=== PATIENT | female | born 1980 | race Caucasian/White ===

== ENCOUNTER 2019-11-29 14:59 | Outpatient (REF) | payer OTHER, SELFPAY ==
[2019-11-29 15:53] LABS: Hematocrit 36.8 % (37-47); Hemoglobin 11.9 g/dl (12.0-16.0); Mean Corpuscular HGB Conc 32.3 g/dl (31.0-35.0); Mean Corpuscular Hemoglobin 27.2 pg (27.0-33.0); Mean Corpuscular Volume 84.2 fL (80-98); Mean Platelet Volume 10.4 fL (9.4-12.3); Platelet Count 273 X10*3/uL (160-400); Red Blood Count 4.37 X10*6/uL (4.20-5.50); Red Cell Distribution Width 13.2 % (11.0-16.0); White Blood Count 8.4 X10*3/uL (4.8-10.8)
[2019-11-29 16:14] LABS: Anion Gap 12 (12-20); Blood Urea Nitrogen 16 mg/dL (9-16); Calcium 9.3 mg/dL (8.4-10.2); Carbon Dioxide 26 mmol/L (22-29); Chloride 104 mmol/L (96-108); Cholesterol 179 mg/dL; Estimated Glomerular Filt Rate > 60; Glucose Random 89 mg/dL (60-115); HDL Cholesterol 57 mg/dL; LDL Cholesterol Calculated 88 mg/dl; Potassium 4.6 mmol/l (3.3-5.1); Sodium 137 mmol/L (135-145); Triglycerides 171 mg/dL
[2019-11-29 19:17] LABS: Alanine Aminotransferase 11 U/L (0-31); Albumin Level 4.3 g/dL (3.5-5.0); Alkaline Phosphatase 57 U/L (39-117); Aspartate Amino Transferase 15 U/L (5-31); Bilirubin Direct < 0.2 mg/dL (0.0-0.5); Bilirubin Total 0.3 mg/dL (0.0-1.0); Total Protein 7.3 g/dL (6.5-8.0)
== END 2019-11-29 15:00 | disposition home or self-care (01) ==
LOC: HO.LAB 14:59
PROVIDERS: PCP Internal Medicine; Visit Provider Internal Medicine
DX: Z00.00 Encounter for general adult medical examination without abnormal findings (principal); Z20.828 Contact with and (suspected) exposure to other viral communicable diseases
CPT/HCPCS: 36415; 80048; 80061; 80076; 84443; 85027; 87635

== ENCOUNTER 2021-01-07 16:10 | Outpatient (REF) | payer OTHER, SELFPAY ==
[2021-01-07 16:29] LABS: MANUAL DIFF FLAG NO
[2021-01-07 18:14] LABS: Basophils Percent Auto 0.5 % (0-2); Eosinophils Absolute Auto 0.1 X10*3/uL (0.0-0.4); Eosinophils Percent Auto 1.5 % (0-4); Hematocrit 37.4 % (37.0-47.0); Hemoglobin 12.1 g/dl (12.0-16.0); Imm Gran Abs Auto 0.01 X10*3/uL (0.00-0.03); Imm Gran Pct Auto 0.1 % (0.0-0.4); Lymphocytes Absolute Auto 3.2 X10*3/uL (1.2-4.9); Lymphocytes Percent Auto 40.6 % (20-40); Mean Corpuscular HGB Conc 32.4 g/dl (31.0-35.0); Mean Corpuscular Volume 83.5 fL (80.0-98.0); Mean Platelet Volume 11.3 fL (9.4-12.3); Monocytes Absolute Auto 0.6 X10*3/uL (0.1-1.2); Monocytes Percent Auto 7.9 % (2-11); Neutrophils Absolute Auto 3.8 x10*3/uL (2.0-8.3); Neutrophils Percent Auto 49.4 % (45-73); Platelet Count 268 X10*3/uL (160-400); Red Blood Count 4.48 X10*6/uL (4.20-5.50); Red Cell Distribution Width 13.1 % (11.0-16.0); White Blood Count 7.8 X10*3/uL (4.8-10.8)
[2021-01-07 18:20] LABS: Appearance Urine CLEAR; Color Urine YELLOW; Glucose Urine UA NEG (NEG); Leukocyte Esterase Urine NEG (NEG); Nitrite Urine NEG (NEG); Urine Blood NEG (NEG); Urine Ketones NEG (NEG); Urine Protein NEG (NEG-TRACE)
== END 2021-01-07 16:11 | disposition home or self-care (01) ==
LOC: HO.LAB 16:10
PROVIDERS: PCP Internal Medicine; Visit Provider Family Medicine
DX: Z00.00 Encounter for general adult medical examination without abnormal findings (principal); R10.9 Unspecified abdominal pain
CPT/HCPCS: 36415; 81003; 85025

== ENCOUNTER 2021-01-08 06:40 | Outpatient (REF) | payer OTHER, SELFPAY ==
[2021-01-08 07:54] LABS: Alanine Aminotransferase 14 U/L (0-31); Albumin Level 4.3 g/dL (3.5-5.0); Alkaline Phosphatase 59 U/L (39-117); Anion Gap 12 (12-20); Aspartate Amino Transferase 15 U/L (5-31); Bilirubin Total 0.5 mg/dL (0.0-1.0); Blood Urea Nitrogen 13 mg/dL (9-16); Calcium 9.5 mg/dL (8.4-10.2); Carbon Dioxide 27 mmol/L (22-29); Chloride 107 mmol/L (96-108); Estimated Glomerular Filt Rate > 60; Glucose Fasting 89 mg/dL (60-99); Lipase 23 U/L (8-78); Potassium 4.6 mmol/L (3.3-5.1); Sodium 141 mmol/L (135-145)
== END 2021-01-08 06:41 | disposition home or self-care (01) ==
LOC: HO.LAB 06:40
PROVIDERS: PCP Internal Medicine; Visit Provider Family Medicine
DX: Z00.00 Encounter for general adult medical examination without abnormal findings (principal); R10.9 Unspecified abdominal pain
CPT/HCPCS: 36415; 80053; 83690

== ENCOUNTER 2021-01-17 10:33 | Outpatient (REF) | payer OTHER, SELFPAY ==
--- NOTE | ~2021-01-17 | US_ITS ---
EXAMINATION: US ABDOMEN COMPLETE CLINICAL INFORMATION: Unspecified abdominal pain. COMPARISON: CT abdomen and pelvis 01/13/2012. TECHNIQUE: Real-time imaging of the abdominal viscera. FINDINGS: PANCREAS: Not well visualized due to bowel gas. ABDOMINAL AORTA: The proximal, mid, and distal segments are normal in caliber. INFERIOR VENA CAVA: Visualized portions are normal. LIVER: The liver is normal in size. The liver contour is normal. No focal hepatic lesion. There is no intrahepatic biliary duct dilatation seen. GALLBLADDER: Normal. The gallbladder is physiologically distended without evidence of stones, sludge, polyps, wall thickening or pericholecystic fluid. COMMON BILE DUCT: Normal in caliber measuring 0.3 cm in diameter. RIGHT KIDNEY: Normal. No hydronephrosis. No renal calculi or focal parenchymal lesions. The kidney measures 11.0 cm in maximum dimension. LEFT KIDNEY: Normal. No hydronephrosis. No renal calculi or focal parenchymal lesions. The kidney measures 9.9 cm in maximum dimension. SPLEEN: The spleen measures 7.4 cm in maximum dimension. There are multiple splenules. Appearance is questionable for polysplenia. This is similar to previous CT scan from 2012. FREE FLUID: None. US/US abdomen complete IMPRESSION: Multiple splenules. Question polysplenia. Nonvisualization of the pancreas. Otherwise unremarkable exam.
== END 2021-01-17 10:34 | disposition home or self-care (01) ==
LOC: HO.HMGCX 10:33
PROVIDERS: PCP Internal Medicine; Visit Provider Family Medicine
DX: R10.11 Right upper quadrant pain (principal)
CPT/HCPCS: 76700

== ENCOUNTER → 2021-02-05 07:57 | Outpatient (REF) | payer OTHER, SELFPAY ==
--- NOTE | ~2021-02-05 | NM_ITS ---
EXAMINATION: NM BILIARY TRACT WITH ORAL FATTY MEAL CLINICAL INFORMATION: Right upper quadrant pain. COMPARISON: No previous biliary scan is available for comparison. Abdominal ultrasound dated 01/17/[address] scan of the abdomen and pelvis, dated 01/13/2012, are available for comparison. TECHNIQUE: Serial gamma scintillation camera images were obtained over the abdomen for a total observation period of 134 minutes following the intravenous administration of 4.6 mCi Tc-99m Mebrofenin. FINDINGS: There is good concentration of activity in the liver by 5 minutes post injection. Biliary activity is visualized by 15 minutes post injection and the gallbladder is well visualized by 25 minutes post injection. Small bowel activity is well visualized by 55 minutes post injection. At 60 minutes post Mebrofenin injection, 8 ounces of Ensure-plus Brand was administered orally and an additional 60 minutes of images were obtained. There is only minimal gallbladder emptying following ingestion of the fatty meal. At the end of the study there is almost complete clearance of activity from the liver, but there is abnormal retention of activity in the gallbladder. Diffuse small bowel activity is also well visualized at this time. The calculated gallbladder ejection fraction is 25% (normal gallbladder ejection fraction using Ensure supplement orally is greater than 33%). NM/NM hepatobiliary wo pharm IMPRESSION: 1. Visualization of the gallbladder is evidence of a patent cystic duct and strong evidence against the diagnosis of acute cholecystitis. The common bile duct is patent. Liver function appears normal. 2. Poor gallbladder emptying and a low gallbladder ejection fraction are evidence of impaired gallbladder contractility and most likely due to chronic cholecystitis.
[2021-02-05 09:37] LABS: HCG Quantitative < 2 mIU/mL
== END ==
LOC: HO.NUCMED 07:57
PROVIDERS: Visit Provider Family Medicine
DX: R10.11 Right upper quadrant pain (principal)
CPT/HCPCS: 36415; 78226; 84702; A9537

== ENCOUNTER 2021-02-26 13:13 | Outpatient (REF) | payer OTHER, SELFPAY ==
--- NOTE | ~2021-02-26 | MM_ITS ---
EXAMINATION: MM DIAGNOSTIC DIGITAL BREAST TOMOSYNTHESIS, BILATERAL US DIAGNOSTIC ULTRASOUND BREAST, BILATERAL CLINICAL INFORMATION: Bilateral mastodynia, recently increased. Currently on course of empiric antibiotics. No erythema. Family history breast cancer, maternal grandmother. Age 40. No prior breast imaging. The lifetime risk of breast cancer based on the Tyrer-Cuzick Model is 20.2%. COMPARISON: None (current study represents initial baseline diagnostic exam). TECHNIQUE: Digital breast tomosynthesis is performed in both the craniocaudal and mediolateral oblique views along with computer-aided detection (CAD). Synthesized 2D images are generated from the tomosynthesis. Ultrasound bilateral breasts is performed using grayscale imaging and color Doppler without and with harmonics. Imaging is targeted to the areas of symptoms, bilateral outer breasts. FINDINGS: The breasts are heterogeneously dense, which may obscure small masses (ACR BI-RADS breast composition Category c). Breast tissue composition borders on average fibroglandular. There is no significant mass or architectural abnormality or abnormal calcifications. There is no skin thickening or coarsening of the Homero's ligaments. No adenopathy. Ultrasound demonstrates no cystic or solid mass or focal duct ectasia. No architectural abnormality. No skin thickening or edema tracking in soft tissue planes. Preliminary results are discussed with the patient at time of visit. MM/MM tomosynthesis diagnostic BI IMPRESSION: No mammographic evidence of malignancy or inflammatory changes. Unremarkable bilateral breast ultrasound. ASSESSMENT: BI-RADS 1: Negative RECOMMENDATION: 1. Patient's bilateral breast symptoms should be managed based on the clinical impression. 2. The lifetime risk of breast cancer based on the Tyrer-Cuzick Model is 20.2%. Additional annual adjunct screening with breast MRI may be of benefit in women with a risk score of 20% or greater. 3. Otherwise, routine annual screening mammography beginning age 40, or earlier as clinical risk factors warrant.. This patient's information was entered into a reminder system with a target due date for their next mammogram.
== END 2021-02-26 13:14 | disposition home or self-care (01) ==
LOC: HO.MAMMO 13:13
PROVIDERS: Visit Provider Hospitalist
DX: N64.4 Mastodynia (principal)
CPT/HCPCS: 76642; 77062; 77066

== ENCOUNTER 2021-02-26 15:39 | Outpatient (REF) | payer OTHER, SELFPAY ==
[2021-02-26 16:01] LABS: Hematocrit 37.5 % (37.0-47.0); Hemoglobin 12.3 g/dl (12.0-16.0); Mean Corpuscular HGB Conc 32.8 g/dl (31.0-35.0); Mean Corpuscular Hemoglobin 27.3 pg (27.0-33.0); Mean Corpuscular Volume 83.1 fL (80.0-98.0); Mean Platelet Volume 10.3 fL (9.4-12.3); Platelet Count 273 X10*3/uL (160-400); Red Blood Count 4.51 X10*6/uL (4.20-5.50); Red Cell Distribution Width 13.1 % (11.0-16.0); White Blood Count 8.3 X10*3/uL (4.8-10.8)
== END 2021-02-26 15:40 | disposition home or self-care (01) ==
LOC: HO.LAB 15:39
PROVIDERS: PCP Family Medicine; Visit Provider Hospitalist
DX: N61.23 Granulomatous mastitis, bilateral breast (principal); N64.4 Mastodynia
CPT/HCPCS: 36415; 85027

== ENCOUNTER 2022-03-11 11:45 | Outpatient (REF) | payer OTHER, SELFPAY ==
[2022-03-11 14:36] LABS: Influenza A PCR NEGATIVE (Negative); Influenza B PCR NEGATIVE (Negative); Resp Syncy Virus RNA Qual PCR NEGATIVE (Negative); SARS COV2 PCR INHOUSE NEGATIVE (Negative)
== END 2022-03-11 11:46 | disposition home or self-care (01) ==
LOC: HO.LAB 11:45
PROVIDERS: Visit Provider Nurse Practitioner Family
DX: J06.9 Acute upper respiratory infection, unspecified (principal); Z20.822 Contact with and (suspected) exposure to COVID-19
CPT/HCPCS: 0241U

== ENCOUNTER 2022-06-28 10:13 | Outpatient (REF) | payer OTHER, SELFPAY | END 2022-06-28 10:14 | disposition home or self-care (01) | LOC: HO.LAB 10:13 | PROVIDERS: Visit Provider Physician Assistant Medical | DX: Z13.89 Encounter for screening for other disorder (principal) ==

== ENCOUNTER 2022-06-28 11:11 | Outpatient (REF) | payer OTHER, SELFPAY ==
[2022-06-28 12:11] LABS: Influenza A PCR NEGATIVE (Negative); Influenza B PCR NEGATIVE (Negative); Resp Syncy Virus RNA Qual PCR NEGATIVE (Negative); SARS COV2 PCR INHOUSE NEGATIVE (Negative)
== END 2022-06-28 11:12 | disposition home or self-care (01) ==
LOC: HO.LNP 11:11
PROVIDERS: Visit Provider Physician Assistant Medical
DX: R05.9 Cough, unspecified (principal); Z20.822 Contact with and (suspected) exposure to COVID-19
CPT/HCPCS: 0241U

== ENCOUNTER 2022-09-04 13:05 | Outpatient (AMB) | payer OTHER, SELFPAY ==
--- NOTE | 2022-09-04 13:07 | MHC.PC.OV ---
Vital Signs 09/04/22 13:08 Height 5 ft 4 in Weight 144 lb 4 oz BMI 24.8 BP 126/74 Blood Pressure Location Rt brachial Position Sitting Pulse 78 Pulse Source Pulse Oximeter Pulse Oximetry (%) 98 Intake Visit Reasons: follow up MH disorder Intake Note: pt is here for f/u MH disorder Occupational Medicine Specialist Required: No Accompanied by: Self / Same As Patient Allergies bee venom protein (honey bee) Allergy (Intermediate, Verified 09/04/22 13:07) Swelling promethazine [Phenergan] Allergy (Unknown, Verified 09/04/22 13:07) Hives Sulfa (Sulfonamide Antibiotics) [SULFA (SULFONAMIDE ANTIBIOTICS)] Allergy (Unknown, Verified 09/04/22 13:07) HIVES lactose Adverse Reaction (Mild, Verified 09/04/22 13:07) Diarrhea Tobacco use date assessed: 07/31/22 Dental Screening Dental Screen Date: 09/04/22 Did you have a dental visit in the last 12 months?: Yes Did you have a dental problem in the last 6 months where you did not have access to dental care?: No Was dental information given to patient?: Patient has dentist HPI follow up MH disorder HPI Details Pt presents to f/u depression/anxiety. She has been scoring positive on the questionnaires. She denies any SI/self harm. She is on bupropion 75mg b.i.d. and setraline 200mg. She reports difficulty concentrating. She notes she had a prior diagnosis of ADHD. She notes bupropion has been working well but questions whether or not there is something better for her. She states she feels more anxious than depressed. She sleeps okay. She describes her anxiety as a hyperstimulated anxiety. [facility] Medical History Screening examination for infectious disease Surgical History History of hernia surgery History of tonsillectomy and adenoidectomy History of umbilical hernia repair Family History Mother Hypothyroid High cholesterol Father Prostate cancer Thyroid disease High cholesterol Other Lipoma Social History Housing: House Alcohol intake: current Alcohol intake frequency: holidays/special occasions only Patient Tobacco Use Status: Never used Tobacco e-Cigarette/Vaping Use: Never Used Second Hand Smoke Exposure: Yes service: No Current occupational status: employed Current occupational exposures/hazards: No Cognitive needs: No Hearing needs: No Vision needs: No Questionnaire PHQ-9 Over the last 2 weeks, how often have you been bothered by any of the following problems? 1. Little interest or pleasure in doing things: several days 2. Feeling down, depressed, or hopeless: several days 3. Trouble falling or staying asleep, or sleeping too much: not at all 4. Feeling tired or having little energy: several days 5. Poor appetite or overeating: not at all 6. Feeling bad about yourself - or that you are a failure or have let yourself or your family down: more than half the days 7. Trouble concentrating on things, such as reading the newspaper or watching television: several days 8. Moving or speaking so slowly that other people could have noticed. Or the opposite - being so fidgety or restless that you have been moving around a lot more than usual: several days 9. Thoughts that you would be better off or of hurting yourself in some way: several days Total score: 8 Depression Screening Interpretation: Positive 04600 - PHQ-9 Billing: Yes Source: Developed by Drs. Sanchez Nunez, Deirdre Mock, Helio Carlos and colleagues, with an educational alba from [employer]. Thrive Questionnaire Date Thrive assessed: 09/04/22 I am a: Patient What is your living situation today?: I have a steady place to live Within the past 12 months, did the food you bought not last and you didn't have the money to get more?: Never true Within the past 12 months, did you worry whether your food would run out before you got money to buy more?: Never true Do you have trouble paying for medicines?: No Do you have trouble getting transportation to medical appointments?: No Do you have trouble paying your heating and electricity bill?: No Do you have trouble taking care of your child, family member or friend?: No Do you have trouble with day-to-day activities such as bathing, preparing meals, shopping, managing finances, etc.?: No Are you currently unemployed and looking for a job?: No Are you interested in more education?: No Please select the resources that you would like help with: None Currently or been in a relationship where the following occur: no concerns reported AIME-7 AMB Questionnaire AIME-7 Date AIME - 7 assessed: 09/04/22 Feeling nervous, anxious, or on edge: 2 = More than half the days Not being able to stop or control worryin = More than half the days Worrying too much about different things: 2 = More than half the days Trouble relaxin = More than half the days Being so restless that it is hard to sit still: 1 = Several days Becoming easily annoyed or irritable: 2 = More than half the days Feeling afraid as if something awful might happen: 1 = Several days Total AIME-7 score (0-4 normal; 5-9 mild; 10-14 moderate; 15-21 severe): 12 Source: Developed by Drs. Sanchez Nunez, Deirdre Mock, Helio Carlos and colleagues, with an educational alba from [employer]. AIME-7 Assessment Billing AIME-7 Assessment Tool: AIME-7 Assessment 96742 Review of Systems Psych Reports anxiety and Reports depression Physical exam (Primary Care) Vital Signs: Last Vital Signs Pulse 78 09/04/22 13:08 BP 126/74 09/04/22 13:08 Pulse Ox 98 09/04/22 13:08 BMI result Body Mass Index 24.8 Tobacco/Smoking Status: Tobacco use Status Tobacco use date assessed 07/31/22 09/04/22 13:17 Patient Tobacco Use Status Never used Tobacco 09/04/22 13:17 e-Cigarette/Vaping Use Never Used 09/04/22 13:17 PHQ-9: PHQ-9 Score PHQ-9: Total score 8 09/04/22 13:17 Depression Screening Interpretation: Positive Thrive Assessment: Date of Thrive Assessment Date Thrive assessed 09/04/22 09/04/22 13:17 Currently or been in a relationship where the following occur: no concerns reported Assessment and Plan Assessment & Plan (1) Depression with anxiety: Code(s): F41.8 - Other specified anxiety disorders Plan: Ongoing depression and anxiety. Still has elevated scoring in PHQ-9 and aime 7 Taking sertraline and bupropion as prescribed and bupropion was increased at a recent visit. Still having some anxiety in the evenings. Stable on a first-line medication and adjunct medication; will give her a 2nd line medication. Trial lorazepam as needed Risks/benefits were discussed (2) Difficulty concentrating: Code(s): R41.840 - Attention and concentration deficit Plan: She also has difficulty concentrating during the day and notes that she has had a prior diagnosis of ADHD. I do not currently have records establishing this diagnosis but she says she will be able to get those to me. We can follow-up on this at her next visit Medications: New lorazepam MassPat verified. Partial refill upon request. 0.5 mg PO DAILY PRN 12 tabs 0RF anxiety 30 days Changed From bupropion HCl 75 mg PO BID 30 days 60 tabs 0RF F32.A - Depression, unspecified, F33.2 - Major depressive disorder, recurrent severe without psychotic features To bupropion HCl 75 mg PO BID 90 days 180 tabs 3RF F32.A - Depression, unspecified, F33.2 - Major depressive disorder, recurrent severe without psychotic features From sertraline 200 mg (2 x 100 mg) PO BEDTIME 180 tabs 3RF To sertraline 200 mg (2 x 100 mg) PO BEDTIME 90 days 180 tabs 3RF Coding Level of Care Code Est Pt Level 3 (00401) Diagnoses Depression with anxiety F41.8 Difficulty concentrating R41.840 Additional Codes AIME-7 Assessment Billing - AIME-7 Assessment Tool: AIME-7 Assessment 86685 ([id number])
[2022-09-04 13:08] VITALS: BP 126/74; PULSE 78; O2SAT 98; BMI 24.8
== END 2022-09-04 13:53 | disposition home or self-care (01) ==
PROVIDERS: PCP Family Medicine; Visit Provider Family Medicine
DX: F41.8 Other specified anxiety disorders (principal); R41.840 Attention and concentration deficit
CPT/HCPCS: 96127; 99213

== ENCOUNTER 2022-10-06 15:35 | Outpatient (AMB) | payer OTHER, SELFPAY ==
[2022-10-06 15:37] VITALS: BP 122/70; PULSE 84; O2SAT 98; BMI 24.6
--- NOTE | 2022-10-06 15:37 | MHC.PC.OV ---
Vital Signs 10/06/22 15:37 Height 5 ft 4 in Weight 143 lb 4 oz BMI 24.6 BP 122/70 Blood Pressure Location Lt brachial Position Sitting Pulse 84 Pulse Source Pulse Oximeter Pulse Oximetry (%) 98 Oxygen Delivery Method Room Air Intake Visit Reasons: f/u depression/anxiety, difficulty concentrating Intake Note: Patient is here to follow up on anxiety and depression. Patient states she has difficuly concentrating. Allergies bee venom protein (honey bee) Allergy (Intermediate, Verified 10/06/22 15:41) Swelling promethazine [Phenergan] Allergy (Unknown, Verified 10/06/22 15:41) Hives Sulfa (Sulfonamide Antibiotics) [SULFA (SULFONAMIDE ANTIBIOTICS)] Allergy (Unknown, Verified 10/06/22 15:41) HIVES lactose Adverse Reaction (Mild, Verified 10/06/22 15:41) Diarrhea Tobacco use date assessed: 10/06/22 Dental Screening Dental Screen Date: 10/06/22 Did you have a dental visit in the last 12 months?: Yes Did you have a dental problem in the last 6 months where you did not have access to dental care?: No Was dental information given to patient?: Patient has dentist HPI f/u depression/anxiety, difficulty concentrating HPI Details 42 y/o female presents to f/u depression/anxiety and difficulty concentrating. Had been to the [facility] center and confirmed diagnosis of ADHD - they recommend medications to help with depression/anxiety and difficulty concentrating. She reports she would like to switch to lorazepam and hydroxyzine. [facility] Medical History Screening examination for infectious disease Surgical History History of hernia surgery History of tonsillectomy and adenoidectomy History of umbilical hernia repair Family History Mother Hypothyroid High cholesterol Father Prostate cancer Thyroid disease High cholesterol Other Lipoma Social History Housing: House Alcohol intake: current Alcohol intake frequency: holidays/special occasions only Patient Tobacco Use Status: Never used Tobacco e-Cigarette/Vaping Use: Never Used Second Hand Smoke Exposure: Yes service: No Current occupational status: employed Current occupational exposures/hazards: No Cognitive needs: No Hearing needs: No Vision needs: No Questionnaire PHQ-9 Over the last 2 weeks, how often have you been bothered by any of the following problems? 1. Little interest or pleasure in doing things: several days 2. Feeling down, depressed, or hopeless: several days 3. Trouble falling or staying asleep, or sleeping too much: not at all 4. Feeling tired or having little energy: several days 5. Poor appetite or overeating: not at all 6. Feeling bad about yourself - or that you are a failure or have let yourself or your family down: more than half the days 7. Trouble concentrating on things, such as reading the newspaper or watching television: several days 8. Moving or speaking so slowly that other people could have noticed. Or the opposite - being so fidgety or restless that you have been moving around a lot more than usual: not at all 9. Thoughts that you would be better off or of hurting yourself in some way: several days Total score: 7 Depression Screening Interpretation: Positive 06843 - PHQ-9 Billing: Yes Source: Developed by Drs. Sanchez Nunez, Deirdre Mock, Helio Carlos and colleagues, with an educational alba from [employer]. Thrive Questionnaire Date Thrive assessed: 09/04/22 AIME-7 AMB Questionnaire AIME-7 Date AIME - 7 assessed: 09/04/22 Feeling nervous, anxious, or on edge: 1 = Several days Not being able to stop or control worryin = Several days Worrying too much about different things: 2 = More than half the days Trouble relaxin = More than half the days Being so restless that it is hard to sit still: 2 = More than half the days Becoming easily annoyed or irritable: 1 = Several days Feeling afraid as if something awful might happen: 1 = Several days Total AIME-7 score (0-4 normal; 5-9 mild; 10-14 moderate; 15-21 severe): 10 Source: Developed by Drs. Sanchez Nunez, Helio Treviño and colleagues, with an educational alba from [employer]. AIME-7 Assessment Billing AIME-7 Assessment Tool: AIME-7 Assessment 44422 Review of Systems Const Denies chills, Denies fatigue, Denies fever(s), Denies headache(s) and Denies weakness ENT Denies dizziness and Denies headache(s) Card Denies chest pain, Denies lightheadedness, Denies dyspnea and Denies other (Palpitations) Resp Denies cough, Denies dyspnea, Denies wheezing and Denies other ( shortness of breath) Musc Denies numbness and Denies tingling Neuro Denies dizziness, Denies headache(s), Denies numbness, Denies tingling, Denies paresthesias and Denies weakness Psych Reports anxiety and Reports depression Endo Denies fatigue Aller/Immun Denies wheezing Physical exam (Primary Care) Vital Signs: Last Vital Signs Pulse 84 10/06/22 15:37 BP 122/70 10/06/22 15:37 Pulse Ox 98 10/06/22 15:37 Oxygen Delivery Method Room Air 10/06/22 15:37 BMI result Body Mass Index 24.6 Tobacco/Smoking Status: Tobacco use Status Tobacco use date assessed 10/06/22 10/06/22 15:50 Patient Tobacco Use Status Never used Tobacco 10/06/22 15:50 e-Cigarette/Vaping Use Never Used 10/06/22 15:50 PHQ-9: PHQ-9 Score PHQ-9: Total score 7 10/06/22 15:55 Depression Screening Interpretation: Positive Thrive Assessment: Date of Thrive Assessment Date Thrive assessed 09/04/22 10/06/22 15:50 Const General: no acute distress and well developed Nutritional Appearance: well nourished Orientation/consciousness: patient oriented x3 HENMT Head: Yes normocephalic and Yes atraumatic Eyes General: appearance normal, both eyes and all related structures Pupils: Equal, round and reactive pupils present EOM: EOMs intact bilaterally Resp Effort & Inspection: normal respiratory effort Auscultation: clear to auscultation bilaterally Cardio Rate: regular rate Rhythm: regular rhythm Heart sounds: S1 normal heart sound present, S2 normal heart sound present, no gallops, no murmurs and no rubs Neuro General: patient oriented x3 and gait normal Cranial nerves: Yes Equal, round and reactive pupils present Psych Affect: normal affect Assessment and Plan Assessment & Plan (1) Depression with anxiety: Code(s): F41.8 - Other specified anxiety disorders Plan: Fairly well controlled on bupropion and sertraline She would like to switch from lorazepam to hydroxyzine - change made Continue bupropion and sertraline as prescribed (2) ADHD: Code(s): F90.9 - Attention-deficit hyperactivity disorder, unspecified type Plan: Neuropsychiatry confirms diagnosis of ADHD-inattentive subtype and suggest that medication may be helpful Trial Adderall XR 10 mg q.a.m. risks/benefits discussed with patient. Medications: New dextroamphetamine-amphetamine 10 mg ER (Adderall XR) Partial Fill upon patient request. 10 mg PO QAM 30 caps 0RF 30 days F90.9 - Attention-deficit hyperactivity disorder, unspecified type hydroxyzine HCl 50 mg PO BID PRN 15 tabs 0RF anxiety 30 days Discontinued lorazepam MassPat verified. Partial refill upon request. Discontinued Reason: Doctor's Order 0.5 mg PO DAILY 30 days PRN 12 tabs 0RF anxiety Coding Level of Care Code Est Pt Level 3 (55261) Diagnoses Depression with anxiety F41.8 ADHD F90.9 Additional Codes AIME-7 Assessment Billing - AIME-7 Assessment Tool: AIME-7 Assessment 22554 ([id number])
== END 2022-10-06 16:25 | disposition home or self-care (01) ==
PROVIDERS: PCP Family Medicine; Visit Provider Family Medicine
DX: F41.8 Other specified anxiety disorders (principal); F90.9 Attention-deficit hyperactivity disorder, unspecified type
CPT/HCPCS: 96127; 99213

== ENCOUNTER 2022-11-14 16:24 | Outpatient (AMB) | payer OTHER, SELFPAY ==
--- NOTE | 2022-11-14 16:30 | MHC.PC.OV ---
Vital Signs 11/14/22 16:32 Height 5 ft 4 in Weight 143 lb 8 oz BMI 24.6 BP 118/64 Blood Pressure Location Rt brachial Position Sitting Respiration 13 Pulse 86 Pulse Source Pulse Oximeter Temp 97.5 F Temp Source Temporal Artery Scan Pulse Oximetry (%) 99 Oxygen Delivery Method Room Air Intake Visit Reasons: f/u depression/anxiety, difficulty concentrating Intake Note: Patient states that shes been having issues with insurance for her prescriptions. 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 Accompanied by: Self / Same As Patient Allergies bee venom protein (honey bee) Allergy (Intermediate, Verified 11/14/22 16:43) Swelling promethazine [Phenergan] Allergy (Unknown, Verified 11/14/22 16:43) Hives Sulfa (Sulfonamide Antibiotics) [SULFA (SULFONAMIDE ANTIBIOTICS)] Allergy (Unknown, Verified 11/14/22 16:43) HIVES lactose Adverse Reaction (Mild, Verified 11/14/22 16:43) Diarrhea Tobacco use date assessed: 10/06/22 Dental Screening Dental Screen Date: 11/14/22 Did you have a dental visit in the last 12 months?: Yes Did you have a dental problem in the last 6 months where you did not have access to dental care?: No Was dental information given to patient?: Patient has dentist HPI f/u depression/anxiety, difficulty concentrating HPI Details Patient?presents?to?discuss?anxiety?and?ADHD Had?continued?her?sertraline?and?bupropion?without?changes.??Had?switch?lorazepam to?hydroxyzine?at?her?request?and?she?seems?to?feel?that?the?hydroxyzine?is?working?better. Started?Adderall?last?month?and?she?says?that?it?has?been?helping?but?fluctuated?somewhat?initially.??She?says?this?has?improved?but?that?sometimes?it?seems?to?not?quiet?last?the?whole?day. No?worsening?of?her?an?anxiety-in?fact?she?feels?it?is?improved?with?this?medication.??No?appetite?changes?and?no?sleep?disturbance. [facility] Medical History Screening examination for infectious disease Surgical History History of tonsillectomy and adenoidectomy History of hernia surgery History of umbilical hernia repair Family History Mother Hypothyroid High cholesterol Father Prostate cancer Thyroid disease High cholesterol Other Lipoma Social History Housing: House Alcohol intake: current Alcohol intake frequency: holidays/special occasions only Patient Tobacco Use Status: Never used Tobacco e-Cigarette/Vaping Use: Never Used Second Hand Smoke Exposure: Yes service: No Current occupational status: employed Current occupational exposures/hazards: No Cognitive needs: No Hearing needs: No Vision needs: No Questionnaire PHQ-9 Over the last 2 weeks, how often have you been bothered by any of the following problems? 1. Little interest or pleasure in doing things: several days 2. Feeling down, depressed, or hopeless: several days 3. Trouble falling or staying asleep, or sleeping too much: not at all 4. Feeling tired or having little energy: nearly every day 5. Poor appetite or overeating: not at all 6. Feeling bad about yourself - or that you are a failure or have let yourself or your family down: several days 7. Trouble concentrating on things, such as reading the newspaper or watching television: several days 8. Moving or speaking so slowly that other people could have noticed. Or the opposite - being so fidgety or restless that you have been moving around a lot more than usual: not at all 9. Thoughts that you would be better off or of hurting yourself in some way: several days Total score: 8 Depression Screening Interpretation: Positive Depression Screening Done: Yes Source: Developed by Drs. Sanchez Nunez, Deirdre Mock, Helio Carlos and colleagues, with an educational alba from [employer]. Thrive Questionnaire Date Thrive assessed: 09/04/22 AIME-7 AMB Questionnaire AIME-7 Date AIME - 7 assessed: 11/14/22 Feeling nervous, anxious, or on edge: 1 = Several days Not being able to stop or control worryin = Several days Worrying too much about different things: 1 = Several days Trouble relaxin = Nearly every day Being so restless that it is hard to sit still: 1 = Several days Becoming easily annoyed or irritable: 1 = Several days Feeling afraid as if something awful might happen: 1 = Several days Total AIME-7 score (0-4 normal; 5-9 mild; 10-14 moderate; 15-21 severe): 9 Source: Developed by Drs. Sanchez Nunez, Deirdre Mock, Helio Carlos and colleagues, with an educational alba from [employer]. Review of Systems Const Denies chills, Denies fatigue, Denies fever(s), Denies headache(s) and Denies weakness ENT Denies dizziness and Denies headache(s) Card Denies chest pain, Denies lightheadedness, Denies dyspnea and Denies other (Palpitations) Resp Denies cough, Denies dyspnea, Denies wheezing and Denies other ( shortness of breath) Musc Denies numbness and Denies tingling Neuro Denies dizziness, Denies headache(s), Denies numbness, Denies tingling, Denies paresthesias and Denies weakness Psych Denies anxiety and Denies depression Endo Denies fatigue Aller/Immun Denies wheezing Physical exam (Primary Care) Vital Signs: Last Vital Signs Temp 97.5 F 11/14/22 16:32 Pulse 86 11/14/22 16:32 Resp 13 11/14/22 16:32 BP 118/64 11/14/22 16:32 Pulse Ox 99 11/14/22 16:32 Oxygen Delivery Method Room Air 11/14/22 16:32 BMI result Body Mass Index 24.6 Tobacco/Smoking Status: Tobacco use Status Tobacco use date assessed 10/06/22 11/14/22 16:31 Patient Tobacco Use Status Never used Tobacco 11/14/22 16:31 e-Cigarette/Vaping Use Never Used 11/14/22 16:31 PHQ-9: PHQ-9 Score PHQ-9: Total score 8 11/14/22 16:49 Depression Screening Interpretation: Positive Thrive Assessment: Date of Thrive Assessment Date Thrive assessed 09/04/22 11/14/22 16:31 Const General: no acute distress and well developed Nutritional Appearance: well nourished Orientation/consciousness: patient oriented x3 [facility] Head: Yes normocephalic and Yes atraumatic Eyes General: appearance normal, both eyes and all related structures Pupils: Equal, round and reactive pupils present EOM: EOMs intact bilaterally Resp Effort & Inspection: normal respiratory effort Auscultation: clear to auscultation bilaterally Cardio Rate: regular rate Rhythm: regular rhythm Heart sounds: S1 normal heart sound present, S2 normal heart sound present, no gallops, no murmurs and no rubs Neuro General: patient oriented x3 and gait normal Cranial nerves: Yes Equal, round and reactive pupils present Psych Affect: normal affect Assessment and Plan Assessment & Plan (1) Depression with anxiety: Code(s): F41.8 - Other specified anxiety disorders Plan: Patient?notes?some?decrease?in?her?anxiety?after?starting?Adderall. She?feels?that?her?sertraline?and?bupropion?are?helping?and?that?the?switch?from?lorazepam?to?hydroxyzine?has?been?helpful?as?well. Continue?current?medication?regimen (2) ADHD: Code(s): F90.9 - Attention-deficit hyperactivity disorder, unspecified type Plan: Patient?was?started?on?Adderall?XR?10?mg?daily?1?month?ago?and?she?says?this?has?been?helping?with?concentration?as?well?as?helping?with?anxiety. She?does?feel?that?it?sometimes?does?not?last?quite?long?enough?but?that?this?has?been?improving?over?the?last?month. No?worsening?of?anxiety?with?this?medication,?in?fact?it?has?improved.??No?problems?with?appetite.??No?problems?with?sleep. Will?get?her?back?in?1?month?to?see?if?medication?remains?efficacious?and?is?lasting?long?enough.??If?not,?will?try?increasing?medication?dose. Medications: Refilled dextroamphetamine-amphetamine 10 mg ER (Adderall XR) Partial Fill upon patient request. 10 mg PO QAM 30 days 30 caps 0RF F90.9 - Attention-deficit hyperactivity disorder, unspecified type Coding Level of Care Code Est Pt Level 3 (02601) Diagnoses Depression with anxiety F41.8 ADHD F90.9
[2022-11-14 16:32] VITALS: BP 118/64; PULSE 86; RESP 13; TEMP 36.4; O2SAT 99; BMI 24.6
== END 2022-11-14 17:14 | disposition home or self-care (01) ==
PROVIDERS: PCP Family Medicine; Visit Provider Family Medicine
DX: F41.8 Other specified anxiety disorders (principal); F90.9 Attention-deficit hyperactivity disorder, unspecified type
CPT/HCPCS: 99213

== ENCOUNTER 2022-12-11 15:44 | Outpatient (AMB) | payer OTHER, SELFPAY ==
--- NOTE | 2022-12-11 15:47 | A.OFFPC_ITS ---
Vital Signs 12/11/22 15:48 Height 5 ft 4 in Weight 145 lb BMI 24.9 BP 122/74 Blood Pressure Location Lt brachial Position Sitting Pulse 87 Pulse Source Pulse Oximeter Pulse Oximetry (%) 98 Oxygen Delivery Method Room Air Intake Visit Reasons: f/u depression/anxiety Intake Note: Patient is here for follow up on anxiety and depression. Allergies bee venom protein (honey bee) Allergy (Intermediate, Verified 12/11/22 15:50) Swelling promethazine [Phenergan] Allergy (Unknown, Verified 12/11/22 15:50) Hives Sulfa (Sulfonamide Antibiotics) [SULFA (SULFONAMIDE ANTIBIOTICS)] Allergy (Unknown, Verified 12/11/22 15:50) HIVES lactose Adverse Reaction (Mild, Verified 12/11/22 15:50) Diarrhea Tobacco use date assessed: 12/11/22 HPI f/u depression/anxiety HPI Details 42 y/o female presents to f/u depression /anxiety and ADHD. She is on sertraline 200mg daily, bupropion 75mg b.i.d. and Adderall 10mg. Pt denies any issues with increased anxiety, appetite issues, sleep isssues on her Adderall. [facility] Medical History Screening examination for infectious disease Surgical History History of tonsillectomy and adenoidectomy History of hernia surgery History of umbilical hernia repair Family History Mother Hypothyroid High cholesterol Father Prostate cancer Thyroid disease High cholesterol Other Lipoma Social History Housing: House Alcohol intake: current Alcohol intake frequency: holidays/special occasions only Patient Tobacco Use Status: Never used Tobacco e-Cigarette/Vaping Use: Never Used Second Hand Smoke Exposure: Yes service: No Current occupational status: employed Current occupational exposures/hazards: No Cognitive needs: No Hearing needs: No Vision needs: No Questionnaire PHQ-9 Over the last 2 weeks, how often have you been bothered by any of the following problems? 1. Little interest or pleasure in doing things: several days 2. Feeling down, depressed, or hopeless: several days 3. Trouble falling or staying asleep, or sleeping too much: several days 4. Feeling tired or having little energy: nearly every day 5. Poor appetite or overeating: not at all 6. Feeling bad about yourself - or that you are a failure or have let yourself or your family down: several days 7. Trouble concentrating on things, such as reading the newspaper or watching television: several days 8. Moving or speaking so slowly that other people could have noticed. Or the opposite - being so fidgety or restless that you have been moving around a lot more than usual: not at all 9. Thoughts that you would be better off or of hurting yourself in some way: several days Total score: 9 Depression Screening Interpretation: Positive Depression Screening Done: Yes Source: Developed by Drs. Sanchez Nunez, Deirdre Mock, Helio Carlos and colleagues, with an educational alba from [employer]. Thrive Questionnaire Date Thrive assessed: 09/04/22 AIME-7 AMB Questionnaire AIME-7 Date AIME - 7 assessed: 12/11/22 Feeling nervous, anxious, or on edge: 1 = Several days Not being able to stop or control worryin = Several days Worrying too much about different things: 1 = Several days Trouble relaxin = More than half the days Being so restless that it is hard to sit still: 1 = Several days Becoming easily annoyed or irritable: 1 = Several days Feeling afraid as if something awful might happen: 0 = Not at all Total AIME-7 score (0-4 normal; 5-9 mild; 10-14 moderate; 15-21 severe): 7 Source: Developed by Drs. Sanchez Nunez, Deirdre Mock, Helio Carlos and colleagues, with an educational alba from [employer]. Review of Systems Const Denies chills, Denies fatigue, Denies fever(s), Denies headache(s) and Denies weakness ENT Denies dizziness and Denies headache(s) Card Denies chest pain, Denies lightheadedness, Denies dyspnea and Denies other (Palpitations) Resp Denies cough, Denies dyspnea, Denies wheezing and Denies other ( shortness of breath) Musc Denies numbness and Denies tingling Neuro Denies dizziness, Denies headache(s), Denies numbness, Denies tingling, Denies paresthesias and Denies weakness Psych Reports anxiety and Reports depression Endo Denies fatigue Aller/Immun Denies wheezing Physical exam (Primary Care) Vital Signs: Last Vital Signs Pulse 87 12/11/22 15:48 BP 122/74 12/11/22 15:48 Pulse Ox 98 12/11/22 15:48 Oxygen Delivery Method Room Air 12/11/22 15:48 BMI result Body Mass Index 24.9 Tobacco/Smoking Status: Tobacco use Status Tobacco use date assessed 12/11/22 12/11/22 15:52 Patient Tobacco Use Status Never used Tobacco 12/11/22 15:52 e-Cigarette/Vaping Use Never Used 12/11/22 15:52 PHQ-9: PHQ-9 Score PHQ-9: Total score 9 12/11/22 15:58 Depression Screening Interpretation: Positive Thrive Assessment: Date of Thrive Assessment Date Thrive assessed 09/04/22 12/11/22 15:52 Const General: no acute distress and well developed Nutritional Appearance: well nourished Orientation/consciousness: patient oriented x3 [facility] Head: Yes normocephalic and Yes atraumatic Eyes General: appearance normal, both eyes and all related structures Pupils: Equal, round and reactive pupils present EOM: EOMs intact bilaterally Resp Effort & Inspection: normal respiratory effort Auscultation: clear to auscultation bilaterally Cardio Rate: regular rate Rhythm: regular rhythm Heart sounds: S1 normal heart sound present, S2 normal heart sound present, no gallops, no murmurs and no rubs Neuro General: patient oriented x3 and gait normal Cranial nerves: Yes Equal, round and reactive pupils present Psych Affect: normal affect Assessment and Plan Assessment & Plan (1) ADHD: Code(s): F90.9 - Attention-deficit hyperactivity disorder, unspecified type Plan: Fair?efficacy?but?she?does?note?some?dropping?off?of?her?ability?to?concentrate? before?the?end?of?her?day?at?work. No?worsening?of?her?anxiety?in?fact?she?feels?it?may?help?some. No?appetite?changes?or?problems?with?sleep Will?increase?Adderall?XR?10?mg?to?Adderall?XR?20?mg. She?will?take?Adderall?XR?10?mg x 2 tablets?daily. If?this?is?working?better?for?her,?she?can?let?me?know?and?her?next?script?can?b e?for?Adderall?XR?20?mg?capsules. (2) Depression with anxiety: Code(s): F41.8 - Other specified anxiety disorders Plan: Sertraline?and?hydroxyzine?are?helping. She?would?like?refills?and?will?send?these?to?[facility] Orders: Orders Comprehensive [place]. Panel Fast Today Z00.00 - Encounter for general adult medical examination without abnormal findings Microalbumin, Random (w Creat) Today I10 - Essential (primary) hypertension Lipid Panel Today Z00.00 - Encounter for general adult medical examination without abnormal findings UA and rflx microscopic Today Z00.00 - Encounter for general adult medical examination without abnormal findings TSH reflex Free T4 Today Z00.00 - Encounter for general adult medical examination without abnormal findings Vitamin B12 and Folate Today E53.8 - Deficiency of other specified B group vitamins Medications: Changed From hydroxyzine HCl 50 mg PO BID 30 days PRN 15 tabs 0RF anxiety To hydroxyzine HCl 50 mg PO BID 90 days PRN 45 tabs 0RF anxiety From dextroamphetamine-amphetamine 10 mg ER (Adderall XR) Partial Fill upon patient request. 10 mg PO QAM 30 days 30 caps 0RF F90.9 - Attention-deficit hyperactivity disorder, unspecified type To dextroamphetamine-amphetamine 10 mg ER (Adderall XR) MassPat Verified. Partial Fill upon patient request. 20 mg (2 x 10 mg) PO QAM 30 days 60 caps 0RF F90.9 - Attention-deficit hyperactivity disorder, unspecified type Refilled sertraline 200 mg (2 x 100 mg) PO BEDTIME 90 days 180 tabs 3RF Coding Level of Care Code Est Pt Level 3 (38720) Diagnoses ADHD F90.9 Depression with anxiety F41.8
[2022-12-11 15:48] VITALS: BP 122/74; PULSE 87; O2SAT 98; BMI 24.9
== END 2022-12-11 16:19 | disposition home or self-care (01) ==
PROVIDERS: PCP Family Medicine; Visit Provider Family Medicine
DX: F90.9 Attention-deficit hyperactivity disorder, unspecified type (principal); F41.8 Other specified anxiety disorders
CPT/HCPCS: 99213

== ENCOUNTER 2023-01-21 09:46 | Outpatient (AMB) | payer OTHER, SELFPAY ==
--- NOTE | 2023-01-21 10:51 | MHC.OFFWIV ---
Intake Vital Signs 01/21/23 10:56 Height 5 ft 4 in Weight 146 lb 4 oz BMI 25.1 BP 96/60 Blood Pressure Location Rt brachial Position Sitting Pulse 86 Pulse Source Pulse Oximeter Temp 97 F Temp Source Temporal Artery Scan Pulse Oximetry (%) 97 Oxygen Delivery Method Room Air Intake Visit Reasons: EST/sinus pressure([phone]) Intake Note: Pt is here c/o flu like symptoms as well as sinus pressure. Patient Tobacco Use Status: Never used Tobacco Allergies bee venom protein (honey bee) Allergy (Intermediate, Verified 01/21/23 10:51) Swelling promethazine [Phenergan] Allergy (Unknown, Verified 01/21/23 10:51) Hives Sulfa (Sulfonamide Antibiotics) [SULFA (SULFONAMIDE ANTIBIOTICS)] Allergy (Unknown, Verified 01/21/23 10:51) HIVES lactose Adverse Reaction (Mild, Verified 01/21/23 10:51) Diarrhea Medication List - Last Reconciled 01/21/23 by Angelique Rahman PA-C acetaminophen mg PO amoxicillin-pot clavulanate 875-125 mg 1 tab PO BID apple cider vinegar mg PO bupropion HCl 75 mg PO BID 90 days calcium-magnesium 750-465 mg 1 tab PO DAILY cholecalciferol (vitamin D3) (Vitamin D3) 25 mcg PO DAILY dextroamphetamine-amphetamine 10 mg ER (Adderall XR) 20 mg (2 x 10 mg) PO QAM 30 days fluticasone propionate 50 mcg/actuation (Flonase Allergy Relief) 1 spray intranasal Q12H hydroxyzine HCl 50 mg PO BID PRN 90 days ibuprofen 800 mg PO Q8H ipratropium bromide 2 sprays intranasal BID-TID PRN lecithin 1,200 mg PO DAILY potassium 75 mg PO DAILY [id number] 1 tab PO DAILY sertraline 200 mg (2 x 100 mg) PO BEDTIME 90 days vitamin B complex ER 1 tab PO DAILY Do you need a note to return to daycare/school/sports/work: Yes HPI HPI Comments History of Present Illness Details BP always low She decided to come today due to sinus symptoms Ongoing x a few weeks 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 COVID swab was negative + body aches, fatigue and flu like symptoms No flu vaccine yet Thursday fever 101 Has been home for a few days since but sinuses are getting worse since + pressure top of head and over eyes Pressure in ears now Waking up with post nasal drip and phlegm which is brown/green Dizziness with sudden head movements Eating/drinking okay [facility] Medical History (Updated 01/21/23 @ 11:35 by Angelique Rahman PA-C) Sinus infection Screening examination for infectious disease Surgical History History of tonsillectomy and adenoidectomy History of hernia surgery History of umbilical hernia repair Family History Mother Hypothyroid High cholesterol Father Prostate cancer Thyroid disease High cholesterol Other Lipoma Social History Housing: House Alcohol intake: current Alcohol intake frequency: holidays/special occasions only Patient Tobacco Use Status: Never used Tobacco e-Cigarette/Vaping Use: Never Used Second Hand Smoke Exposure: Yes service: No Current occupational status: employed Current occupational exposures/hazards: No Cognitive needs: No Hearing needs: No Vision needs: No Review of Systems Const Reports body aches, Reports chills, Reports fatigue, Reports fever(s) and Reports headache(s) Eyes Denies blurry vision ENT Reports dizziness, Denies ear discharge, Reports headache(s), Denies mouth pain, Reports sinus pain, Reports sinus pressure, Denies sore throat and Denies throat swelling Card Denies chest pain, Denies rapid heart rate and Denies dyspnea Resp Reports cough and Denies dyspnea Musc Reports myalgias Neuro Reports dizziness, Reports headache(s) and Denies focal weakness Endo Reports fatigue Aller/Immun Denies throat swelling Physical Exam Vital Signs: Last Vital Signs Temp 97 F 01/21/23 10:56 Pulse 86 01/21/23 10:56 BP 96/60 01/21/23 10:56 Pulse Ox 97 01/21/23 10:56 Oxygen Delivery Method Room Air 01/21/23 10:56 BMI result Body Mass Index 25.1 General: Non-toxic, NAD. Speaking full sentences. Skin: Warm dry throughout Eye: PERRL, EOMI; no nystagmus HENT: Airway patent. Uvula midline. No pharyngeal erythema or edema. 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 Bilateral canals clear. TM slight erythema without bulging. + flui bilaterally. No TM perforation or hemotympanum noted.+ sinus tenderness frontal bilaterally Respiratory: CTA bilaterally. No wheezes, rales or rhonchi Cardiac: RRR. No murmur MSK: No midline tenderness. Full ROM extremities. Neurology: A/O x 3. No dizziness upon standing/moving. 5/5 detective investigator strength. negative rhomberg. CN 2-12 grossly intact. No aphasia or facial droop. Equal strength. Gait without abnormality Psych: Good mood and affect Assessment & Plan Assessment & Plan (1) Sinus infection: Code(s): J32.9 - Chronic sinusitis, unspecified Qualifiers: Chronicity: acute Recurrence: non-recurrent Sinusitis location: frontal Qualified Code(s): J01.10 - Acute frontal sinusitis, unspecified Plan Patient seen and evaluated. Lungs CTA She states here BP is always low and she has been eating/drinking well + increase fluids Nasal steroid and antibiotic Patient gave verbal understanding and had no additional questions or concerns at time of discharge All questions answered Medications: New amoxicillin-pot clavulanate 875-125 mg 1 tab PO BID 14 tabs 0RF J32.9 - Chronic sinusitis, unspecified ipratropium bromide administer into each nostril 2 sprays intranasal BID-TID PRN 30 mL 0RF allergy symptoms J32.9 - Chronic sinusitis, unspecified Coding Level of Care Code Est Pt Level 3 (70528) Diagnoses Acute non-recurrent frontal sinusitis J01.10 Chronicity: acute Recurrence: non-recurrent Sinusitis location: frontal
[2023-01-21 10:56] VITALS: BP 96/60; PULSE 86; TEMP 36.1; O2SAT 97; BMI 25.1
== END 2023-01-21 11:50 | disposition home or self-care (01) ==
PROVIDERS: PCP Family Medicine; Visit Provider Physician Assistant
DX: J01.10 Acute frontal sinusitis, unspecified (principal)
CPT/HCPCS: 99213

== ENCOUNTER 2023-03-26 10:04 | Outpatient (AMB) | payer OTHER, SELFPAY ==
--- NOTE | 2023-03-26 10:15 | MHC.OFFWIV ---
Intake Vital Signs 03/26/23 10:17 Height 5 ft 4 in Weight 143 lb BMI 24.5 BP 110/60 Blood Pressure Location Rt brachial Position Sitting Pulse 97 Pulse Source Pulse Oximeter Temp 98.8 F Temp Source Oral Pulse Oximetry (%) 100 Oxygen Delivery Method Room Air Intake Visit Reasons: EP ?Sinus Infection/Loss of voice/cough (masked) Intake Note: Pt is here c/o voice loss as well as sinus pain and pressure since Thursday. Pt also states she has post nasal drip followed my mucus cough up. Patient Tobacco Use Status: Never used Tobacco Allergies bee venom protein (honey bee) Allergy (Intermediate, Verified 03/26/23 10:18) Swelling promethazine [Phenergan] Allergy (Unknown, Verified 03/26/23 10:18) Hives Sulfa (Sulfonamide Antibiotics) [SULFA (SULFONAMIDE ANTIBIOTICS)] Allergy (Unknown, Verified 03/26/23 10:18) HIVES lactose Adverse Reaction (Mild, Verified 03/26/23 10:18) Diarrhea HPI HPI Comments History of Present Illness Details 43 y/o female patient presents to walk in clinic with c/o URI symptoms since Thursday. Reports lost of voice. 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 Denies fevers, chills, nausea or vomiting. [facility] Medical History (Updated 01/21/23 @ 11:35 by Angelique Rahman PA-C) Sinus infection Screening examination for infectious disease Surgical History History of tonsillectomy and adenoidectomy History of hernia surgery History of umbilical hernia repair Family History Mother Hypothyroid High cholesterol Father Prostate cancer Thyroid disease High cholesterol Other [place] Social History Housing: House Alcohol intake: current Alcohol intake frequency: holidays/special occasions only Patient Tobacco Use Status: Never used Tobacco e-Cigarette/Vaping Use: Never Used Second Hand Smoke Exposure: Yes service: No Current occupational status: employed Current occupational exposures/hazards: No Cognitive needs: No Hearing needs: No Vision needs: No Review of Systems Const All systems reviewed & are unremarkable except as noted in HPI and below Physical Exam Vital Signs: Last Vital Signs Temp 98.8 F 03/26/23 10:17 Pulse 97 03/26/23 10:17 BP 110/60 03/26/23 10:17 Pulse Ox 100 03/26/23 10:17 Oxygen Delivery Method Room Air 03/26/23 10:17 BMI result Body Mass Index 24.5 Const General: comfortable and no acute distress HEENT Head: Yes normocephalic Ears: external ears normal and TM's normal bilaterally General nose exam: Normal nasal mucous membranes and turbinates present Face and sinus: Yes sinuses nontender Mouth: moist mucous membranes Throat: Yes posterior oropharynx normal Resp Effort & Inspection: normal respiratory effort Auscultation: clear to auscultation bilaterally Cardio Rate: regular rate Rhythm: regular rhythm Results AMB Rapid Strep AMB Rapid Strep Negative Last Edit by Joleen Guerra CMA on 03/26/23 10:29 Results Reviewed Results Reviewed: Laboratory Last Values Strep Scn Rapid Clinic Negative 03/26/23 10:28 Assessment & Plan Assessment & Plan (1) Acute rhinosinusitis: Code(s): J01.90 - Acute sinusitis, unspecified Plan: - Warm fluids - Rest - OTC cold/cough medicines - Acetaminophen for pain relief. Orders: Orders AMB Rapid Strep Screen Today Z13.9 - Encounter for screening, unspecified Ralph Reynoso MD SARS-CoV2/FLU/RSV Today J01.90 - Acute sinusitis, unspecified Fara Vidal NP Medications: New benzonatate 100 mg PO TID 30 caps 0RF Fara Vidal NP [id number]-NT-swkauzaowxc 5-10-100 mg/5 mL (Adult Robitussin Peak Cold M-S) 10 mL PO Q4H PRN 237 mL 0RF cold symptoms J01.90 - Acute sinusitis, unspecified Fara Vidal NP Coding Level of Care Code Est Pt Level 3 (34257) Diagnoses Acute rhinosinusitis J01.90 Time Spent (min) 15
[2023-03-26 10:17] VITALS: BP 110/60; PULSE 97; TEMP 37.1; O2SAT 100; BMI 24.5
== END 2023-03-26 11:21 | disposition home or self-care (01) ==
PROVIDERS: PCP Family Medicine; Visit Provider Nurse Practitioner Family
DX: J01.90 Acute sinusitis, unspecified (principal); J02.9 Acute pharyngitis, unspecified
CPT/HCPCS: 87880; 99213

== ENCOUNTER 2023-03-26 13:07 | Outpatient (REF) | payer OTHER, SELFPAY ==
[2023-03-26 13:59] LABS: Influenza A PCR NEGATIVE (Negative); Influenza B PCR NEGATIVE (Negative); Resp Syncy Virus RNA Qual PCR NEGATIVE (Negative); SARS COV2 PCR INHOUSE NEGATIVE (Negative)
== END 2023-03-26 13:08 | disposition home or self-care (01) ==
LOC: HO.HMGCLNP 13:07
PROVIDERS: Visit Provider Nurse Practitioner Family
DX: Z11.52 Encounter for screening for COVID-19 (principal); Z20.822 Contact with and (suspected) exposure to COVID-19; J01.90 Acute sinusitis, unspecified
CPT/HCPCS: 0241U

== ENCOUNTER 2023-05-01 15:53 | Outpatient (AMB) | payer OTHER, SELFPAY ==
--- NOTE | 2023-05-01 15:42 | MHC.PC.OV ---
Intake Visit Reasons: Med review [phone] Intake Note: Patient is calling for med review, Adderall, and would like to talk about control.. Allergies bee venom protein (honey bee) Allergy (Intermediate, Verified 05/01/23 15:44) Swelling promethazine [Phenergan] Allergy (Unknown, Verified 05/01/23 15:44) Hives Sulfa (Sulfonamide Antibiotics) [SULFA (SULFONAMIDE ANTIBIOTICS)] Allergy (Unknown, Verified 05/01/23 15:44) HIVES lactose Adverse Reaction (Mild, Verified 05/01/23 15:44) Diarrhea Medication List - Last Reconciled 05/01/23 by Morales Kim MD apple cider vinegar mg PO bupropion HCl 75 mg PO BID 90 days calcium-magnesium 750-465 mg 1 tab PO DAILY cholecalciferol (vitamin D3) (Vitamin D3) 25 mcg PO DAILY dextroamphetamine-amphetamine 10 mg ER (Adderall XR) 20 mg (2 x 10 mg) PO QAM 30 days fluticasone propionate 50 mcg/actuation (Flonase Allergy Relief) 1 spray intranasal Q12H hydroxyzine HCl 50 mg PO BID PRN 90 days ibuprofen 800 mg PO Q8H ipratropium bromide 2 sprays intranasal BID-TID PRN lecithin 1,200 mg PO DAILY [id number]-OH-[id number] 5-10-100 mg/5 mL (Adult Robitussin Peak Cold M-S) 10 mL PO Q4H PRN potassium 75 mg PO DAILY usizhfwh-uch-Aw-FA 1 tab PO DAILY sertraline 200 mg (2 x 100 mg) PO BEDTIME 90 days vitamin B complex ER 1 tab PO DAILY Tobacco use date assessed: 05/01/23 [facility] Med review [phone] HPI Details 43 y/o female presents for a med review via telemedicine. She is on Adderall - has trialed 20mg for a week but states that it had increased her anxiety so she had went down to 10mg. She notes 10mg has been working well for her. She denies any issues with sleep. Pt notes heavy periods. [facility] Medical History Sinus infection Screening examination for infectious disease Surgical History History of tonsillectomy and adenoidectomy History of hernia surgery History of umbilical hernia repair Family History Mother Hypothyroid High cholesterol Father Prostate cancer Thyroid disease High cholesterol Other Lipoma Social History Housing: House Alcohol intake: current Alcohol intake frequency: holidays/special occasions only Patient Tobacco Use Status: Never used Tobacco e-Cigarette/Vaping Use: Never Used Second Hand Smoke Exposure: Yes service: No Current occupational status: employed Current occupational exposures/hazards: No Cognitive needs: No Hearing needs: No Vision needs: No Questionnaire PHQ-9 Over the last 2 weeks, how often have you been bothered by any of the following problems? 1. Little interest or pleasure in doing things: not at all 2. Feeling down, depressed, or hopeless: not at all 3. Trouble falling or staying asleep, or sleeping too much: not at all 4. Feeling tired or having little energy: not at all 5. Poor appetite or overeating: not at all 6. Feeling bad about yourself - or that you are a failure or have let yourself or your family down: not at all 7. Trouble concentrating on things, such as reading the newspaper or watching television: not at all 8. Moving or speaking so slowly that other people could have noticed. Or the opposite - being so fidgety or restless that you have been moving around a lot more than usual: not at all 9. Thoughts that you would be better off or of hurting yourself in some way: not at all Total score: 0 Depression Screening Interpretation: Negative Depression Screening Done: Yes Source: Developed by Drs. Sanchez Nunez, Deirdre Mock, Helio Carlos and colleagues, with an educational alba from [employer]. Thrive Questionnaire Date Thrive assessed: 09/04/22 AIME-7 AMB Questionnaire AIME-7 Date AIME - 7 assessed: 05/01/23 Feeling nervous, anxious, or on edge: 0 = Not at all Not being able to stop or control worryin = Not at all Worrying too much about different things: 0 = Not at all Trouble relaxin = Not at all Being so restless that it is hard to sit still: 0 = Not at all Becoming easily annoyed or irritable: 0 = Not at all Feeling afraid as if something awful might happen: 0 = Not at all Total AIME-7 score (0-4 normal; 5-9 mild; 10-14 moderate; 15-21 severe): 0 Source: Developed by Drs. Sanchez Nunez, Deirdre Mock, Helio Carlos and colleagues, with an educational alba from [employer]. Review of Systems Const Denies chills, Denies fatigue, Denies fever(s), Denies headache(s) and Denies weakness ENT Denies dizziness and Denies headache(s) Card Denies dyspnea Resp Denies cough, Denies dyspnea, Denies wheezing and Denies other (shortness of breath) Musc Denies numbness and Denies tingling Neuro Denies dizziness, Denies headache(s), Denies numbness, Denies tingling and Denies weakness Psych Denies anxiety and Denies depression Endo Denies fatigue Aller/Immun Denies wheezing Physical exam (Primary Care) Tobacco/Smoking Status: Tobacco use Status Tobacco use date assessed 05/01/23 05/01/23 15:51 Patient Tobacco Use Status Never used Tobacco 05/01/23 15:46 e-Cigarette/Vaping Use Never Used 05/01/23 15:46 PHQ-9: PHQ-9 Score PHQ-9: Total score 0 05/01/23 16:22 Depression Screening Interpretation: Negative Thrive Assessment: Date of Thrive Assessment Date Thrive assessed 09/04/22 05/01/23 15:46 Telehealth Telehealth Location of provider rendering services: practice address Location of patient: address on file Patient Identification confirmed using: Name, : Yes Telehealth method: voice only Patient verbally consented to treatment: Yes Patient verbally consented to billing insurance company: Yes Patient informed of any privacy concerns related to visit: Yes Minutes spent on Phone/Video with Pt.: 21 Assessment and Plan Assessment & Plan (1) ADHD: Code(s): F90.9 - Attention-deficit hyperactivity disorder, unspecified type Plan: Patient?had?had?increased?anxiety?due?to?increasing?Adderall?from?10?mg?daily?to?20?mg?daily. She?has?reduce?this?back?to?10?mg?daily?and?I?have?adjusted?her?medication?list. Medication?is?otherwise?efficacious?and?not?causing?any?problems?with?sleep?or?appetite. (2) Depression with anxiety: Code(s): F41.8 - Other specified anxiety disorders Plan: Using?bupropion?and?sertraline?along?with?hydroxyzine?as?needed Continue?current?medication?regimen (3) Heavy periods: Code(s): N92.0 - Excessive and frequent menstruation with regular cycle Plan: Heavy?periods?and?she?would?like?to?start?progesterone?only?pill?which?she?has?used?in?the?past Risks/benefits?discussed?with?patient She?can?follow-up?with?her?educational technician?as?well. Orders: Orders Comprehensive [place]. Panel Fast Today Z00.00 - Encounter for general adult medical examination without abnormal findings Vitamin B12 and Folate Today E53.8 - Deficiency of other specified B group vitamins Lipid Panel Today Z00.00 - Encounter for general adult medical examination without abnormal findings Microalbumin, Random (w Creat) Today I10 - Essential (primary) hypertension UA and rflx microscopic Today Z00.00 - Encounter for general adult medical examination without abnormal findings TSH reflex Free T4 Today Z00.00 - Encounter for general adult medical examination without abnormal findings Vitamin D 25-OH Total Today E55.9 - Vitamin D deficiency, unspecified Medications: New norethindrone (contraceptive) start day 1 of menstrual cycle 0.35 mg PO DAILY 84 tabs 2RF 84 days Changed From dextroamphetamine-amphetamine 10 mg ER (Adderall XR) MassPat Verified. Partial Fill upon patient request. 20 mg (2 x 10 mg) PO QAM 30 days 60 caps 0RF F90.9 - Attention-deficit hyperactivity disorder, unspecified type To dextroamphetamine-amphetamine 10 mg ER (Adderall XR) MassPat Verified. Partial Fill upon patient request. 10 mg PO QAM 30 days 30 caps 0RF F90.9 - Attention-deficit hyperactivity disorder, unspecified type Refilled hydroxyzine HCl 50 mg PO BID 90 days PRN 45 tabs 1RF anxiety Coding Level of Care Code Tele Est Pt Level 3 (51551) Diagnoses ADHD F90.9 Depression with anxiety F41.8 Heavy periods N92.0
== END 2023-05-01 17:00 ==
LOC: HO.HMGFM 15:53
PROVIDERS: PCP Family Medicine; Visit Provider Family Medicine
DX: F90.9 Attention-deficit hyperactivity disorder, unspecified type (principal); F41.8 Other specified anxiety disorders; N92.0 Excessive and frequent menstruation with regular cycle
CPT/HCPCS: 99443

== ENCOUNTER 2023-05-09 09:58 | Outpatient (AMB) | payer OTHER, SELFPAY ==
--- NOTE | 2023-05-09 10:43 | MHC.OFFWIV ---
Intake Vital Signs 05/09/23 10:44 Height 5 ft 4 in BP 100/62 Blood Pressure Location Lt brachial Position Sitting Pulse 92 Pulse Source Pulse Oximeter Temp 99.0 F Temp Source Oral Pulse Oximetry (%) 98 Oxygen Delivery Method Room Air Intake Visit Reasons: Mastitis Rt side Intake Note: Pt says she has a painful lump in her right breast that she noticed yesterday and she says she feels lethargic and her breast is red today pt says she has had mastitis in the past and it feels the same Patient Tobacco Use Status: Never used Tobacco Allergies bee venom protein (honey bee) Allergy (Intermediate, Verified 05/30/23 13:15) Swelling promethazine [Phenergan] Allergy (Unknown, Verified 05/30/23 13:15) Hives Sulfa (Sulfonamide Antibiotics) [SULFA (SULFONAMIDE ANTIBIOTICS)] Allergy (Unknown, Verified 05/30/23 13:15) HIVES lactose Adverse Reaction (Mild, Verified 05/30/23 13:15) Diarrhea HPI Mastitis Rt side HPI Details Patient is a 43-year-old female comes to the walk-in clinic complaining of painful lump in her right breast that she 1st noticed yesterday, along fatigue. She states that the area is becoming red today. 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 She reports that she has been using warm compresses and anti-inflammatories. She has had her mastitis cleared in the past with Augmentin and requests this today. No fever or chills, myalgias, dizziness or weakness, nausea vomiting or diarrhea, discharge from the nipple, or other significant associated symptoms. She reports history of fibrous tissue in the breast, but no masses or malignancies with screening mammograms. [facility] Medical History Sinus infection Screening examination for infectious disease Surgical History History of tonsillectomy and adenoidectomy History of hernia surgery History of umbilical hernia repair Family History Mother Hypothyroid High cholesterol Father Prostate cancer Thyroid disease High cholesterol Other [place] Social History Housing: House Alcohol intake: current Alcohol intake frequency: holidays/special occasions only Patient Tobacco Use Status: Never used Tobacco e-Cigarette/Vaping Use: Never Used Second Hand Smoke Exposure: Yes service: No Current occupational status: employed Current occupational exposures/hazards: No Cognitive needs: No Hearing needs: No Vision needs: No Review of Systems Const All systems reviewed & are unremarkable except as noted in HPI and below Physical Exam Vital Signs: Last Vital Signs Temp 99.0 F 05/09/23 10:44 Pulse 92 05/09/23 10:44 BP 100/62 05/09/23 10:44 Pulse Ox 98 05/09/23 10:44 Oxygen Delivery Method Room Air 05/09/23 10:44 Chest Other: No nipple discharge or other abnormality, no dimpling to the skin of the right breast, no significant asymmetry of the breasts, or other visible irregularity. The area where the mass is palpable on the right breast is not edematous erythematous or warm overlying. Chest palpation & inspection: abnormal palpation of chest wall Breast/axilla inspection: normal inspection of the breasts (No obvious erythematous area) Breast/axilla palpation: abnormal palpation of the breast (Palpable mobile mass to the approx 6 o'clock position of the right breast) Assessment & Plan Assessment & Plan (1) Mastitis: Code(s): N61.0 - Mastitis without abscess Plan 43-year-old female with apparent mastitis, however she is year and half out from her last child. 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 She has malaise, fatigue, low-grade temp, and noticed that the mass in the right breast was reddened this morning. The symptoms are similar to her past experiences with mastitis. She has had symptom resolution with Augmentin in the past, and requests this today, which I filled for her. She will continue with warm compresses as well as anti-inflammatory use as needed. 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 In the meantime, she knows to go to the emergency department with worrisome symptoms. Medications: New amoxicillin-pot clavulanate 875-125 mg 1 tab PO BID 20 tabs 0RF Coding Level of Care Code Est Pt Level 4 (84935) Diagnoses Mastitis N61.0
[2023-05-09 10:44] VITALS: BP 100/62; PULSE 92; TEMP 37.2; O2SAT 98
== END 2023-05-09 11:17 | disposition home or self-care (01) ==
PROVIDERS: PCP Family Medicine; Visit Provider Physician Assistant Medical
DX: N61.0 Mastitis without abscess (principal)
CPT/HCPCS: 99051; 99214

== ENCOUNTER 2023-05-30 10:44 | Outpatient (AMB) | payer OTHER, SELFPAY ==
[2023-05-30 13:13] VITALS: BP 110/70; PULSE 84; TEMP 37.4; O2SAT 98; BMI 24.4
--- NOTE | 2023-05-30 13:17 | MHC.OFFWIV ---
Intake Vital Signs 05/30/23 13:13 Height 5 ft 4 in Weight 142 lb 4 oz BMI 24.4 BP 110/70 Blood Pressure Location Rt brachial Position Sitting Pulse 84 Pulse Source Pulse Oximeter Temp 99.3 F Temp Source Oral Pulse Oximetry (%) 98 Oxygen Delivery Method Room Air Intake Visit Reasons: EP Mastitis Rt side Patient Tobacco Use Status: Never used Tobacco Allergies bee venom protein (honey bee) Allergy (Intermediate, Verified 05/30/23 13:15) Swelling promethazine [Phenergan] Allergy (Unknown, Verified 05/30/23 13:15) Hives Sulfa (Sulfonamide Antibiotics) [SULFA (SULFONAMIDE ANTIBIOTICS)] Allergy (Unknown, Verified 05/30/23 13:15) HIVES lactose Adverse Reaction (Mild, Verified 05/30/23 13:15) Diarrhea Medication List - Last Reconciled 05/30/23 by Morales Kim MD apple cider vinegar mg PO bupropion HCl 75 mg PO BID 90 days calcium-magnesium 750-465 mg 1 tab PO DAILY cholecalciferol (vitamin D3) (Vitamin D3) 25 mcg PO DAILY dextroamphetamine-amphetamine 10 mg ER (Adderall XR) 10 mg PO QAM 30 days ferrous sulfate (Feosol) 325 mg PO DAILY fluticasone propionate 50 mcg/actuation (Flonase Allergy Relief) 1 spray intranasal Q12H hydroxyzine HCl 50 mg PO BID PRN 90 days ibuprofen 800 mg PO Q8H ipratropium bromide 2 sprays intranasal BID-TID PRN lecithin 1,200 mg PO DAILY norethindrone (contraceptive) 0.35 mg PO DAILY 84 days potassium 75 mg PO DAILY sertraline 200 mg (2 x 100 mg) PO BEDTIME 90 days vitamin B complex ER 1 tab PO DAILY vitamin F92-yqjes acid 500-400 mcg 1 tab PO DAILY HPI EP Mastitis Rt side HPI Details Patient with a history of mastodynia and mastitis presents for left-sided breast pain. Recent mammogram at [facility] was negative for malignancies She had treatment with Augmentin about 2 weeks ago and has had treatments with amoxicillin in the past as well. [facility] Medical History Sinus infection Screening examination for infectious disease Surgical History History of tonsillectomy and adenoidectomy History of hernia surgery History of umbilical hernia repair Family History Mother Hypothyroid High cholesterol Father Prostate cancer Thyroid disease High cholesterol Other [place] Social History Housing: House Alcohol intake: current Alcohol intake frequency: holidays/special occasions only Patient Tobacco Use Status: Never used Tobacco e-Cigarette/Vaping Use: Never Used Second Hand Smoke Exposure: Yes service: No Current occupational status: employed Current occupational exposures/hazards: No Cognitive needs: No Hearing needs: No Vision needs: No Review of Systems Const Denies chills, Denies fatigue, Denies fever(s), Denies headache(s) and Denies weakness ENT Denies dizziness and Denies headache(s) Card Denies dyspnea Resp Denies cough, Denies dyspnea, Denies wheezing and Denies other ( shortness of breath) Musc Denies numbness and Denies tingling Skin/Breast Details: Right-sided breast pain No discharge Neuro Denies dizziness, Denies headache(s), Denies numbness, Denies tingling, Denies paresthesias and Denies weakness Psych Denies anxiety and Denies depression Endo Denies fatigue Aller/Immun Denies wheezing Physical Exam Vital Signs: Last Vital Signs Temp 99.3 F 05/30/23 13:13 Pulse 84 05/30/23 13:13 BP 110/70 05/30/23 13:13 Pulse Ox 98 05/30/23 13:13 Oxygen Delivery Method Room Air 05/30/23 13:13 BMI result Body Mass Index 24.4 Const General: no acute distress and well developed Nutritional Appearance: well nourished Orientation/consciousness: patient oriented x3 HEENT Head: Yes normocephalic and Yes atraumatic Eyes General: appearance normal, both eyes and all related structures Pupils: Equal, round and reactive pupils present EOM: EOMs intact bilaterally Resp Effort & Inspection: normal respiratory effort Neuro General: patient oriented x3 and gait normal Cranial nerves: Yes Equal, round and reactive pupils present Psych Affect: normal affect Assessment & Plan Assessment & Plan (1) Mastitis: Code(s): N61.0 - Mastitis without abscess Plan: Will give her a script for cephalexin Warm compresses Ibuprofen Call or return to office if not improving or if worsens. Plan Patient had recent mammogram at [facility]. She reports this as negative. I have requested report. Coding Level of Care Code Est Pt Level 3 (90040) Diagnoses Mastitis N61.0
== END 2023-05-30 14:18 | disposition home or self-care (01) ==
PROVIDERS: PCP Family Medicine; Visit Provider Family Medicine
DX: N61.0 Mastitis without abscess (principal)
CPT/HCPCS: 99051; 99213

== ENCOUNTER 2023-07-03 08:13 | Outpatient (AMB) | payer OTHER, SELFPAY ==
[2023-07-03 08:34] VITALS: BP 112/70; PULSE 108; TEMP 36.7; O2SAT 97
--- NOTE | 2023-07-03 08:34 | MHC.OFFWIV ---
Intake Vital Signs 07/03/23 08:34 Height 5 ft 4 in BP 112/70 Blood Pressure Location Rt brachial Position Sitting Pulse 108 H Pulse Source Pulse Oximeter Temp 98.0 F Temp Source Oral Pulse Oximetry (%) 97 Oxygen Delivery Method Room Air Intake Visit Reasons: EP breast pain rt Intake Note: pt is here for right breast pain Patient Tobacco Use Status: Never used Tobacco Allergies bee venom protein (honey bee) Allergy (Intermediate, Verified 07/03/23 08:34) Swelling promethazine [Phenergan] Allergy (Unknown, Verified 07/03/23 08:34) Hives Sulfa (Sulfonamide Antibiotics) [SULFA (SULFONAMIDE ANTIBIOTICS)] Allergy (Unknown, Verified 07/03/23 08:34) HIVES lactose Adverse Reaction (Mild, Verified 07/03/23 08:34) Diarrhea Do you need a note to return to daycare/school/sports/work: No HPI EP breast pain rt HPI Details This is a 43 year old female patient who presents today with right breast pain. She has a history of recurrent mastitis, and reports this feels consistent with that. She was previously on Augmentin for this several weeks ago, and felt improved until 1 week ago, when pain began to recur. She has firmness/tenderness circumferentially around right nipple. She has had mastitis occur for superficial to breast tissue in the past, however this occurrence is deeper . Denies any nipple discharge. She denies any fever/chills, however she has felt somewhat run down due to a possible upper respiratory viral infection. She has been performing lympatic massage while at home and using NSAIDs without relief. She had very frequent mastitis while , however she is no longer nursing. She sees a breast specialist at the [facility] [place] and has an appt. on 07/28. She has had prior workups for these recurrent infections with U/S, mammograms. She has had to miss work frequently due to trying to recover and maintain her health amongst these infections. [facility] Medical History Sinus infection Screening examination for infectious disease Surgical History History of tonsillectomy and adenoidectomy History of hernia surgery History of umbilical hernia repair Family History Mother Hypothyroid High cholesterol Father Prostate cancer Thyroid disease High cholesterol Other Lipoma Social History Housing: House Alcohol intake: current Alcohol intake frequency: holidays/special occasions only Patient Tobacco Use Status: Never used Tobacco e-Cigarette/Vaping Use: Never Used Second Hand Smoke Exposure: Yes service: No Current occupational status: employed Current occupational exposures/hazards: No Cognitive needs: No Hearing needs: No Vision needs: No Review of Systems Const All systems reviewed & are unremarkable except as noted in HPI and below Physical Exam Vital Signs: Last Vital Signs Temp 98.0 F 07/03/23 08:34 Pulse 108 H 07/03/23 08:34 BP 112/70 07/03/23 08:34 Pulse Ox 97 07/03/23 08:34 Oxygen Delivery Method Room Air 07/03/23 08:34 Const General: cooperative, healthy appearing and no acute distress Nutritional Appearance: average body habitus Limitations: no limitations HEENT Head: Yes normal to inspection Neck Neck: Yes no lymphadenopathy Chest Breast/axilla inspection: normal inspection of the breasts and normal inspection of the axillae Breast/axilla palpation: normal palpation of the axillae and abnormal palpation of the breast right fibrous tissue prominence, tenderness (beneath nipple) and areola normal Chest/axillae images: 1. firm, tender tissue Resp Effort & Inspection: normal respiratory effort Skin General skin exam: no rashes or lesions noted Extrem General: Yes capillary refill normal and Yes no clubbing, cyanosis or edema Psych Appearance: grossly normal Mental Status: mental status grossly normal Speech and movement: Normal speech and movement present Assessment & Plan Assessment & Plan (1) Mastitis of right breast unrelated to of : Code(s): N61.0 - Mastitis without abscess Plan: I am going to start patient on Doxy and also a prednisone taper - she has had frequent recurrence of non-lactational mastitis. She has failed Augmentin and also had s/e from Keflex. Sulfa allergy. I encouraged her to continue Tylenol as needed, and also continue lymphatic massage as tolerated. We reviewed indications, use, possible side effects of prescribed medications. She has f/u with Breast Center at [facility] later in July, and I encouraged her to call to see if there is a sooner appointment. I provided her with a work note. We discussed importance of follow up if she does not improve with treatment, or ED evaluation if she develops worsening symptoms, fever, chills, or abscess. She verbalizes understanding and agrees to plan. Medications: New doxycycline hyclate Take twice a day for 7 days. 100 mg PO BID 7 days 14 caps 0RF N61.0 - Mastitis without abscess prednisone Take 4 tabs for two days, then take 3 tabs for two days, then take 2 tabs for two days, then take 1 tab for 2 days. 10 mg PO DAILY 20 tabs 0RF N61.0 - Mastitis without abscess Coding Level of Care Code Est Pt Level 4 (72403) Diagnoses Mastitis of right breast unrelated to of N61.0
== END 2023-07-03 09:38 | disposition home or self-care (01) ==
PROVIDERS: PCP Family Medicine; Visit Provider Nurse Practitioner Family
DX: N61.0 Mastitis without abscess (principal)
CPT/HCPCS: 99214

== ENCOUNTER 2023-07-10 12:44 | Outpatient (AMB) | payer OTHER, SELFPAY ==
--- NOTE | 2023-07-10 12:47 | A.OFFPC_ITS ---
Vital Signs 07/10/23 12:49 Height 5 ft 4 in Weight 140 lb 8 oz BMI 24.1 BP 118/64 Blood Pressure Location Lt brachial Position Sitting Pulse 94 Pulse Source Pulse Oximeter Pulse Oximetry (%) 98 Oxygen Delivery Method Room Air Intake Visit Reasons: mastitis follow up Intake Note: Patient is here for mastitis follow up, she states she is still having pain., needs paperwork for work filled out. Allergies bee venom protein (honey bee) Allergy (Intermediate, Verified 07/10/23 12:51) Swelling promethazine [Phenergan] Allergy (Unknown, Verified 07/10/23 12:51) Hives Sulfa (Sulfonamide Antibiotics) [SULFA (SULFONAMIDE ANTIBIOTICS)] Allergy (Unknown, Verified 07/10/23 12:51) HIVES lactose Adverse Reaction (Mild, Verified 07/10/23 12:51) Diarrhea Medication List - Last Reconciled 07/10/23 by Morales Kim MD apple cider vinegar mg PO bupropion HCl 75 mg PO BID 90 days calcium-magnesium 750-465 mg 1 tab PO DAILY cholecalciferol (vitamin D3) (Vitamin D3) 25 mcg PO DAILY dextroamphetamine-amphetamine 10 mg ER (Adderall XR) 10 mg PO QAM 30 days doxycycline hyclate 100 mg PO BID 7 days ferrous sulfate (Feosol) 325 mg PO DAILY fluticasone propionate 50 mcg/actuation (Flonase Allergy Relief) 1 spray intranasal Q12H hydroxyzine HCl 50 mg PO BID PRN 90 days ibuprofen 800 mg PO Q8H ipratropium bromide 2 sprays intranasal BID-TID PRN lecithin 1,200 mg PO DAILY norethindrone (contraceptive) 0.35 mg PO DAILY 84 days potassium 75 mg PO DAILY prednisone 10 mg PO DAILY sertraline 200 mg (2 x 100 mg) PO BEDTIME 90 days vitamin B complex ER 1 tab PO DAILY vitamin V48-amuxi acid 500-400 mcg 1 tab PO DAILY Tobacco use date assessed: 05/01/23 Dental Screening Dental Screen Date: 11/14/22 HPI mastitis follow up HPI Details 43 y/o female presents to f/u mastisis. Had started her on doxy/prednisone taper last office visit - has had frequent recurrence of non-lactational mastisis. Had some reaction with cephalexin and pt states her stomach had started getting upset. Pt reports ongoing pain today and swelling did not improve. She has an appt. with breast specialist July 28. [facility] Medical History Sinus infection Screening examination for infectious disease Surgical History History of tonsillectomy and adenoidectomy History of hernia surgery History of umbilical hernia repair Family History Mother Hypothyroid High cholesterol Father Prostate cancer Thyroid disease High cholesterol Other Lipoma Social History Housing: House Alcohol intake: current Alcohol intake frequency: holidays/special occasions only Patient Tobacco Use Status: Never used Tobacco e-Cigarette/Vaping Use: Never Used Second Hand Smoke Exposure: Yes service: No Current occupational status: employed Current occupational exposures/hazards: No Cognitive needs: No Hearing needs: No Vision needs: No Questionnaire Thrive Questionnaire Date Thrive assessed: 09/04/22 AIME-7 AMB Questionnaire AIME-7 Date AIME - 7 assessed: 05/01/23 Source: Developed by Drs. Sanchez Nunez, Deirdre Mock, Helio Carlos and colleagues, with an educational alba from [employer]. Review of Systems Const Denies chills, Denies fatigue, Denies fever(s), Denies headache(s) and Denies weakness ENT Denies dizziness and Denies headache(s) Card Denies dyspnea Resp Denies cough, Denies dyspnea, Denies wheezing and Denies other (shortness of breath) Musc Denies numbness and Denies tingling Neuro Denies dizziness, Denies headache(s), Denies numbness, Denies tingling and Denies weakness Psych Denies anxiety and Denies depression Endo Denies fatigue Aller/Immun Denies wheezing Physical exam (Primary Care) Vital Signs: Last Vital Signs Pulse 94 07/10/23 12:49 BP 118/64 07/10/23 12:49 Pulse Ox 98 07/10/23 12:49 Oxygen Delivery Method Room Air 07/10/23 12:49 BMI result Body Mass Index 24.1 Tobacco/Smoking Status: Tobacco use Status Tobacco use date assessed 05/01/23 07/10/23 12:49 Patient Tobacco Use Status Never used Tobacco 07/10/23 12:49 e-Cigarette/Vaping Use Never Used 07/10/23 12:49 Thrive Assessment: Date of Thrive Assessment Date Thrive assessed 09/04/22 07/10/23 12:49 Const General: well developed; No acute distress Nutritional Appearance: well nourished Orientation/consciousness: patient oriented x3 HENMT Head: Yes normocephalic and Yes atraumatic Eyes General: appearance normal, both eyes and all related structures Pupils: Equal, round and reactive pupils present EOM: EOMs intact bilaterally Resp Effort & Inspection: normal respiratory effort Neuro General: patient oriented x3 and gait normal Cranial nerves: Yes Equal, round and reactive pupils present Psych Affect: normal affect Assessment and Plan Assessment & Plan (1) Mastitis: Code(s): N61.0 - Mastitis without abscess Plan: Ongoing?mastitis.??She?had?had?several?antibiotic?changes?due?to?in?efficacy?and ?side?effects.??She?has?just?finished?doxycycline?and?prednisone?which?have?impr shawna?things?- still?not?completely?resolved?however. Will?extend?the?course?of?her?medication She?should?continue?warm?compresses She?has?an?appointment?with?the?breast?specialist?July? Will?fill?out?FMLA?paperwork?for?her?and?keep?her?out?until?July? Medications: New prednisone 10 mg PO DAILY 10 days 10 tabs 0RF doxycycline hyclate 100 mg PO BID 10 days 20 tabs 0RF Coding Level of Care Code Est Pt Level 3 (24646) Diagnoses Mastitis N61.0
[2023-07-10 12:49] VITALS: BP 118/64; PULSE 94; O2SAT 98; BMI 24.1
== END 2023-07-10 13:46 | disposition home or self-care (01) ==
PROVIDERS: PCP Family Medicine; Visit Provider Family Medicine
DX: N61.0 Mastitis without abscess (principal)
CPT/HCPCS: 99213

== ENCOUNTER 2023-07-17 10:54 | Outpatient (AMB) | payer OTHER, SELFPAY ==
[2023-07-17 11:38] VITALS: BP 130/70; PULSE 95; TEMP 36.7; O2SAT 95; BMI 24.5
--- NOTE | 2023-07-17 11:38 | MHC.OFFWIV ---
Intake Vital Signs 07/17/23 11:38 Height 5 ft 4 in Weight 143 lb BMI 24.5 BP 130/70 Blood Pressure Location Lt brachial Position Sitting Pulse 95 Pulse Source Pulse Oximeter Temp 98.0 F Temp Source Temporal Artery Scan Pulse Oximetry (%) 95 Oxygen Delivery Method Room Air Intake Visit Reasons: Lt ear pain/Mastitis Intake Note: pt is here today for lft ear pain mastitis started 3 days ago Patient Tobacco Use Status: Never used Tobacco Allergies bee venom protein (honey bee) Allergy (Intermediate, Verified 07/17/23 16:57) Swelling promethazine [Phenergan] Allergy (Unknown, Verified 07/17/23 16:57) Hives Sulfa (Sulfonamide Antibiotics) [SULFA (SULFONAMIDE ANTIBIOTICS)] Allergy (Unknown, Verified 07/17/23 16:57) HIVES lactose Adverse Reaction (Mild, Verified 07/17/23 16:57) Diarrhea Medication List - Last Reconciled 07/17/23 by Natalie Emery, BETSEY apple cider vinegar mg PO bupropion HCl 75 mg PO BID 90 days calcium-magnesium 750-465 mg 1 tab PO DAILY cholecalciferol (vitamin D3) (Vitamin D3) 25 mcg PO DAILY dextroamphetamine-amphetamine 10 mg ER (Adderall XR) 10 mg PO QAM 30 days doxycycline hyclate 100 mg PO BID 10 days ferrous sulfate (Feosol) 325 mg PO DAILY fluticasone propionate 50 mcg/actuation (Flonase Allergy Relief) 1 spray intranasal Q12H hydroxyzine HCl 50 mg PO BID PRN 90 days ibuprofen 800 mg PO Q8H ipratropium bromide 2 sprays intranasal BID-TID PRN lecithin 1,200 mg PO DAILY norethindrone (contraceptive) 0.35 mg PO DAILY 84 days potassium 75 mg PO DAILY prednisone 10 mg PO DAILY 10 days prednisone 10 mg PO DAILY sertraline 200 mg (2 x 100 mg) PO BEDTIME 90 days vitamin B complex ER 1 tab PO DAILY vitamin K91-ugfmb acid 500-400 mcg 1 tab PO DAILY Do you need a note to return to daycare/school/sports/work: Yes HPI HPI Comments History of Present Illness Details 43-year-old female presents today with complaint of left ear pain and pressure x3 days PFSH Medical History Sinus infection Screening examination for infectious disease Surgical History History of tonsillectomy and adenoidectomy History of hernia surgery History of umbilical hernia repair Family History Mother Hypothyroid High cholesterol Father Prostate cancer Thyroid disease High cholesterol Other Lipoma Social History Housing: House Alcohol intake: current Alcohol intake frequency: holidays/special occasions only Patient Tobacco Use Status: Never used Tobacco e-Cigarette/Vaping Use: Never Used Second Hand Smoke Exposure: Yes service: No Current occupational status: employed Current occupational exposures/hazards: No Cognitive needs: No Hearing needs: No Vision needs: No Physical Exam Vital Signs: Last Vital Signs Temp 98.0 F 07/17/23 11:38 Pulse 95 07/17/23 11:38 BP 130/70 07/17/23 11:38 Pulse Ox 95 07/17/23 11:38 Oxygen Delivery Method Room Air 07/17/23 11:38 BMI result Body Mass Index 24.5 Assessment & Plan Assessment & Plan (1) Otitis media of left ear: Code(s): H66.92 - Otitis media, unspecified, left ear Qualifiers: Otitis media type: in diseases classified elsewhere Qualified Code(s): H67.2 - Otitis media in diseases classified elsewhere, left ear Medications: New ciprofloxacin-dexamethasone 0.3-0.1 % 4 drps otic (ears) BID 7.5 mL 0RF 5 days H66.92 - Otitis media, unspecified, left ear Coding Diagnoses Otitis media of left ear in disease classified elsewhere H67.2 Otitis media type: in diseases classified elsewhere
--- NOTE | 2023-07-17 19:53 | AM.OFFWIN_ITS ---
Intake Vital Signs 07/17/23 11:38 Height 5 ft 4 in Weight 143 lb BMI 24.5 BP 130/70 Blood Pressure Location Lt brachial Position Sitting Pulse 95 Pulse Source Pulse Oximeter Temp 98.0 F Temp Source Temporal Artery Scan Pulse Oximetry (%) 95 Oxygen Delivery Method Room Air Intake Visit Reasons: Lt ear pain/Mastitis Patient Tobacco Use Status: Never used Tobacco Allergies bee venom protein (honey bee) Allergy (Intermediate, Verified 07/17/23 16:57) Swelling promethazine [Phenergan] Allergy (Unknown, Verified 07/17/23 16:57) Hives Sulfa (Sulfonamide Antibiotics) [SULFA (SULFONAMIDE ANTIBIOTICS)] Allergy (Unknown, Verified 07/17/23 16:57) HIVES lactose Adverse Reaction (Mild, Verified 07/17/23 16:57) Diarrhea Medication List - Last Reconciled 07/17/23 by Natalie Emery, [employer] apple cider vinegar mg PO bupropion HCl 75 mg PO BID 90 days calcium-magnesium 750-465 mg 1 tab PO DAILY cholecalciferol (vitamin D3) (Vitamin D3) 25 mcg PO DAILY dextroamphetamine-amphetamine 10 mg ER (Adderall XR) 10 mg PO QAM 30 days doxycycline hyclate 100 mg PO BID 10 days ferrous sulfate (Feosol) 325 mg PO DAILY fluticasone propionate 50 mcg/actuation (Flonase Allergy Relief) 1 spray intranasal Q12H hydroxyzine HCl 50 mg PO BID PRN 90 days ibuprofen 800 mg PO Q8H ipratropium bromide 2 sprays intranasal BID-TID PRN lecithin 1,200 mg PO DAILY norethindrone (contraceptive) 0.35 mg PO DAILY 84 days potassium 75 mg PO DAILY prednisone 10 mg PO DAILY 10 days prednisone 10 mg PO DAILY sertraline 200 mg (2 x 100 mg) PO BEDTIME 90 days vitamin B complex ER 1 tab PO DAILY vitamin B65-tpoij acid 500-400 mcg 1 tab PO DAILY HPI HPI Comments History of Present Illness Details 43 y/o female with frequent recurrence of non-lactational mastitis presents to walk-in clinic for c/o left ear pain and pressure x 3 days. She remains on doxycycline and tapered prednisone with some improvement in pain and symptoms of mastitis. She has an appt with breast specialist on 07/29/23. She denies fever, chills, sick contact, recent travel, sore throat, headache, CP, SOB, abdominal pain, nausea, vomiting or changes in bowels or bladder. . [facility] Medical History Sinus infection Screening examination for infectious disease Surgical History History of tonsillectomy and adenoidectomy History of hernia surgery History of umbilical hernia repair Family History Mother Hypothyroid High cholesterol Father Prostate cancer Thyroid disease High cholesterol Other Lipoma Social History Housing: House Alcohol intake: current Alcohol intake frequency: holidays/special occasions only Patient Tobacco Use Status: Never used Tobacco e-Cigarette/Vaping Use: Never Used Second Hand Smoke Exposure: Yes service: No Current occupational status: employed Current occupational exposures/hazards: No Cognitive needs: No Hearing needs: No Vision needs: No Review of Systems Const All systems reviewed & are unremarkable except as noted in HPI and below Physical Exam Vital Signs: Last Vital Signs Temp 98.0 F 07/17/23 11:38 Pulse 95 07/17/23 11:38 BP 130/70 07/17/23 11:38 Pulse Ox 95 07/17/23 11:38 Oxygen Delivery Method Room Air 07/17/23 11:38 BMI result Body Mass Index 24.5 Const General: healthy appearing and no acute distress Orientation/consciousness: patient oriented x3 Limitations: no limitations HEENT Ears: hearing grossly normal bilaterally and TM abnormal bulging and erythematous on the left General nose exam: Normal nasal mucous membranes and turbinates present Face and sinus: Yes sinuses nontender Mouth: Normal oral and palatal mucosa present Throat: Yes posterior oropharynx normal Resp Effort & Inspection: normal respiratory effort, no cough, no respiratory distress and not tachypneic Auscultation: clear to auscultation bilaterally Cardio Rate: regular rate Rhythm: regular rhythm Heart sounds: S1 normal heart sound present, S2 normal heart sound present and no murmurs Peripheral pulses: Peripheral pulses 2+ throughout GI Palpation (GI): Soft to palpation and nontender Auscultation: normal bowel sounds Skin General skin exam: no rashes or lesions noted and turgor normal Neuro General: patient oriented x3 Psych Appearance: well kempt Mental Status: mental status grossly normal Affect: normal affect Attitude: cooperative Assessment & Plan Assessment & Plan (1) Otitis media of left ear: Code(s): H66.92 - Otitis media, unspecified, left ear Qualifiers: Otitis media type: in diseases classified elsewhere Qualified Code(s): H67.2 - Otitis media in diseases classified elsewhere, left ear Plan: 43-year-old female seen today for symptoms associated with left ear otitis media, left TM erythemateous and bulging. Will treat with Ciprofloxacin-dexamethasone ear drops, 4 gtts bid x 5 days. Encouraged to drink plenty of fluids, maintain hydration Alternate acetaminophen and Ibuprofen for pain control. Return to walk-in clinic for worsening or unrelieved symptoms or f/u with PCP Medications: New ciprofloxacin-dexamethasone 0.3-0.1 % 4 drps otic (ears) BID 7.5 mL 0RF 5 days H66.92 - Otitis media, unspecified, left ear Coding Level of Care Code Est Pt Level 2 (17576) Diagnoses Otitis media of left ear in disease classified elsewhere H67.2 Otitis media type: in diseases classified elsewhere
== END 2023-07-17 13:14 | disposition home or self-care (01) ==
PROVIDERS: PCP Family Medicine; Visit Provider Nurse Practitioner Acute Care
DX: H66.92 Otitis media, unspecified, left ear (principal)
CPT/HCPCS: 99212

== ENCOUNTER 2023-07-27 09:14 | Outpatient (REF) | payer OTHER, SELFPAY ==
[2023-07-27 09:24] LABS: MANUAL DIFF FLAG NO
[2023-07-27 10:42] LABS: Basophils Percent Auto 0.5 % (0-2); Eosinophils Absolute Auto 0.1 X10*3/uL (0.0-0.4); Eosinophils Percent Auto 1.6 % (0-4); Hematocrit 37.4 % (37.0-47.0); Hemoglobin 12.1 g/dl (12.0-16.0); Imm Gran Abs Auto 0.01 X10*3/uL (0.00-0.03); Imm Gran Pct Auto 0.1 % (0.0-0.4); Lymphocytes Absolute Auto 2.3 X10*3/uL (1.2-4.9); Mean Corpuscular HGB Conc 32.4 g/dl (31.0-35.0); Mean Corpuscular Hemoglobin 26.8 pg (27.0-33.0); Mean Corpuscular Volume 82.9 fL (80.0-98.0); Mean Platelet Volume 11.1 fL (9.4-12.3); Monocytes Absolute Auto 0.6 X10*3/uL (0.1-1.2); Monocytes Percent Auto 7.4 % (2-11); Neutrophils Absolute Auto 4.4 x10*3/uL (2.0-8.3); Neutrophils Percent Auto 59.4 % (45-73); Platelet Count 260 X10*3/uL (160-400); Red Blood Count 4.51 X10*6/uL (4.20-5.50); Red Cell Distribution Width 14.6 % (11.0-16.0); White Blood Count 7.4 X10*3/uL (4.8-10.8)
[2023-07-27 11:06] LABS: Appearance Urine Clear; Color Urine Yellow; Glucose Urine UA Negative (Negative); Leukocyte Esterase Urine Negative (Negative); Nitrite Urine Negative (Negative); Specific Gravity - Urine 1.015 (1.005-1.025); Urine Blood Negative (Negative); Urine Ketones Negative (Negative); Urine Protein Negative (Neg-Trace)
[2023-07-27 11:13] LABS: Alanine Aminotransferase 16 U/L (0-31); Albumin Level 4.2 g/dL (3.5-5.0); Alkaline Phosphatase 62 U/L (39-117); Anion Gap 9 (12-20); Aspartate Amino Transferase 20 U/L (5-31); Bilirubin Total 0.4 mg/dL (0.0-1.0); Blood Urea Nitrogen 11 mg/dL (9-16); Calcium 9.8 mg/dL (8.4-10.2); Carbon Dioxide 29 mmol/L (22-29); Chloride 108 mmol/L (96-108); Cholesterol 191 mg/dL (<200); Estimated Glomerular Filt Rate > 60; Glucose Fasting 79 mg/dL (60-99); HDL Cholesterol 59 mg/dL (>40); Iron 81 mcg/dL (30-160); LDL Cholesterol Calculated 121 mg/dL (<100); Percent Iron Saturation 26 % (15-50); Potassium 4.9 mmol/L (3.3-5.1); Sodium 141 mmol/L (135-145); Total Iron Binding Capacity 312 mcg/dL (228-428); Total Protein 7.4 g/dL (6.5-8.0); Triglycerides 59 mg/dL (<150); Unsaturated Iron Binding 231 ug/dL
[2023-07-27 11:17] LABS: Creatinine Urine 163.99 mg/dL; Microalbum/Creatinine Ratio Ur 3.6 ug/mg cr (<30)
[2023-07-27 11:29] LABS: TSH reflex Free T4 0.96 uIU/mL (0.32-4.0); Vitamin D 25-OH Total 44.6 ng/mL (>30)
[2023-07-27 11:38] LABS: Folate 15.7 ng/mL (> or = 4.0); Vitamin B12 1959 pg/mL (200-900)
== END 2023-07-27 09:15 | disposition home or self-care (01) ==
LOC: HO.LAB 09:14
PROVIDERS: PCP Family Medicine; Visit Provider Family Medicine
DX: Z00.00 Encounter for general adult medical examination without abnormal findings (principal); E55.9 Vitamin D deficiency, unspecified; I10 Essential (primary) hypertension; E53.8 Deficiency of other specified B group vitamins; D64.9 Anemia, unspecified
CPT/HCPCS: 36415; 80053; 80061; 81003; 82043; 82306; 82570; 82607; 82746; 83540; 84443; 85025

== ENCOUNTER 2023-07-28 15:33 | Outpatient (AMB) | payer OTHER, SELFPAY ==
[2023-07-28 15:38] VITALS: BP 126/76; PULSE 102; BMI 24.9
--- NOTE | 2023-07-28 15:38 | MHC.PC.OV ---
Vital Signs 07/28/23 15:38 Height 5 ft 4 in Weight 145 lb 2 oz BMI 24.9 BP 126/76 Blood Pressure Location Lt brachial Position Sitting Pulse 102 H Pulse Source Pulse Oximeter Intake Visit Reasons: Medical Clearance Intake Note: Patient is here for medical clearance for work, has an appointment with breast specialist tomorrow. She states her resting heart rate is high since on Prednisone. Allergies bee venom protein (honey bee) Allergy (Intermediate, Verified 07/28/23 15:43) Swelling promethazine [Phenergan] Allergy (Unknown, Verified 07/28/23 15:43) Hives Sulfa (Sulfonamide Antibiotics) [SULFA (SULFONAMIDE ANTIBIOTICS)] Allergy (Unknown, Verified 07/28/23 15:43) HIVES lactose Adverse Reaction (Mild, Verified 07/28/23 15:43) Diarrhea Medication List - Last Reconciled 07/28/23 by Morales Kim MD apple cider vinegar mg PO bupropion HCl 75 mg PO BID 90 days calcium-magnesium 750-465 mg 1 tab PO DAILY cholecalciferol (vitamin D3) (Vitamin D3) 25 mcg PO DAILY ciprofloxacin-dexamethasone 0.3-0.1 % 4 drps otic (ears) BID 5 days dextroamphetamine-amphetamine 10 mg ER (Adderall XR) 10 mg PO QAM 30 days doxycycline hyclate 100 mg PO BID 10 days ferrous sulfate (Feosol) 325 mg PO DAILY fluticasone propionate 50 mcg/actuation (Flonase Allergy Relief) 1 spray intranasal Q12H hydroxyzine HCl 50 mg PO BID PRN 90 days ibuprofen 800 mg PO Q8H ipratropium bromide 2 sprays intranasal BID-TID PRN lecithin 1,200 mg PO DAILY norethindrone (contraceptive) 0.35 mg PO DAILY 84 days potassium 75 mg PO DAILY prednisone 10 mg PO DAILY sertraline 200 mg (2 x 100 mg) PO BEDTIME 90 days vitamin B complex ER 1 tab PO DAILY vitamin K08-zbwyd acid 500-400 mcg 1 tab PO DAILY Tobacco use date assessed: 05/01/23 Dental Screening Dental Screen Date: 11/14/22 HPI Medical Clearance HPI Details 43 y/o female presents today for medical clearance for work. She has an appt. with her breast specialist tomorrow for her mastitis. Pt reports resting heart rate has been in the 95-100s. PFSH Medical History Sinus infection Screening examination for infectious disease Surgical History History of tonsillectomy and adenoidectomy History of hernia surgery History of umbilical hernia repair Family History Mother Hypothyroid High cholesterol Father Prostate cancer Thyroid disease High cholesterol Other Lipoma Social History Housing: House Alcohol intake: current Alcohol intake frequency: holidays/special occasions only Patient Tobacco Use Status: Never used Tobacco e-Cigarette/Vaping Use: Never Used Second Hand Smoke Exposure: Yes service: No Current occupational status: employed Current occupational exposures/hazards: No Cognitive needs: No Hearing needs: No Vision needs: No Questionnaire Thrive Questionnaire Date Thrive assessed: 09/04/22 AIME-7 AMB Questionnaire AIME-7 Date AIME - 7 assessed: 05/01/23 Source: Developed by Drs. Sanchez Nunez, Deirdre Mock, Helio Carlos and colleagues, with an educational alba from [employer] Review of Systems Const Denies chills, Denies fatigue, Denies fever(s), Denies headache(s) and Denies weakness ENT Denies dizziness and Denies headache(s) Card Denies chest pain, Denies lightheadedness, Denies dyspnea and Denies other (Palpitations) Resp Denies cough, Denies dyspnea, Denies wheezing and Denies other ( shortness of breath) Musc Denies numbness and Denies tingling Neuro Denies dizziness, Denies headache(s), Denies numbness, Denies tingling, Denies paresthesias and Denies weakness Psych Denies anxiety and Denies depression Endo Denies fatigue Aller/Immun Denies wheezing Physical exam (Primary Care) Vital Signs: Last Vital Signs Pulse 102 H 07/28/23 15:38 BP 126/76 07/28/23 15:38 BMI result Body Mass Index 24.9 Tobacco/Smoking Status: Tobacco use Status Tobacco use date assessed 05/01/23 07/28/23 15:50 Patient Tobacco Use Status Never used Tobacco 07/28/23 15:50 e-Cigarette/Vaping Use Never Used 07/28/23 15:50 Thrive Assessment: Date of Thrive Assessment Date Thrive assessed 09/04/22 07/28/23 15:50 Const General: no acute distress and well developed Nutritional Appearance: well nourished Orientation/consciousness: patient oriented x3 HENMT Head: Yes normocephalic and Yes atraumatic Eyes General: appearance normal, both eyes and all related structures Pupils: Equal, round and reactive pupils present EOM: EOMs intact bilaterally Resp Effort & Inspection: normal respiratory effort Auscultation: clear to auscultation bilaterally Cardio Rate: regular rate Rhythm: regular rhythm Heart sounds: S1 normal heart sound present, S2 normal heart sound present, no gallops, no murmurs and no rubs Neuro General: patient oriented x3 and gait normal Cranial nerves: Yes Equal, round and reactive pupils present Psych Affect: normal affect Assessment and Plan Assessment & Plan (1) Mastitis: Code(s): N61.0 - Mastitis without abscess Plan: Ongoing?right?breast/mastitis?pain She?has?been?out?on?FMLA?leave Her?school?year?has?finished.??She?has?an?appointment?with?the?specialist?tomorrow. 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 (2) Palpitations: Code(s): R00.2 - Palpitations Plan: Complain?of?palpitations Auscultation?normal EKG: ?Normal?sinus?rhythm,?normal?axis,?left?atrial?enlargement,?no?ventricular?hypertrophy,?no?ST-T-wave?changes Trial?metoprolol Check?Holter?monitor?test Check?echocardiogram Orders: Orders ECG holter monitor 48 hour Today R00.2 - Palpitations AMB EKG-In Office Today R00.2 - Palpitations CA echo transthoracic complete Today R00.2 - Palpitations, R94.31 - Abnormal electrocardiogram [ECG] [EKG] Medications: New metoprolol succinate ER 12.5 mg (1/2 x 25 mg) PO BID 30 days 30 tabs 1RF R00.2 - Palpitations Coding Level of Care Code Est Pt Level 4 (86598) Diagnoses Mastitis N61.0 Palpitations R00.2
== END 2023-07-28 17:01 | disposition home or self-care (01) ==
PROVIDERS: PCP Family Medicine; Visit Provider Family Medicine
DX: N61.0 Mastitis without abscess (principal); R00.2 Palpitations
CPT/HCPCS: 99214

== ENCOUNTER 2023-07-29 11:56 | Outpatient (AMB) | payer OTHER, SELFPAY ==
[2023-07-29 12:08] VITALS: BP 118/68; PULSE 85; O2SAT 98; BMI 24.9
--- NOTE | 2023-07-29 12:08 | A.OFFPC_ITS ---
Vital Signs 07/29/23 12:08 Height 5 ft 4 in Weight 145 lb 3 oz BMI 24.9 BP 118/68 Blood Pressure Location Lt brachial Position Sitting Pulse 85 Pulse Source Pulse Oximeter Pulse Oximetry (%) 98 Oxygen Delivery Method Room Air Intake Visit Reasons: CPE Intake Note: Patient is here for her physical today. Allergies bee venom protein (honey bee) Allergy (Intermediate, Verified 07/29/23 12:10) Swelling promethazine [Phenergan] Allergy (Unknown, Verified 07/29/23 12:10) Hives Sulfa (Sulfonamide Antibiotics) [SULFA (SULFONAMIDE ANTIBIOTICS)] Allergy (Unknown, Verified 07/29/23 12:10) HIVES lactose Adverse Reaction (Mild, Verified 07/29/23 12:10) Diarrhea Medication List - Last Reconciled 07/29/23 by Morales Kim MD apple cider vinegar mg PO bupropion HCl 75 mg PO BID 90 days calcium-magnesium 750-465 mg 1 tab PO DAILY cholecalciferol (vitamin D3) (Vitamin D3) 25 mcg PO DAILY ciprofloxacin-dexamethasone 0.3-0.1 % 4 drps otic (ears) BID 5 days dextroamphetamine-amphetamine 10 mg ER (Adderall XR) 10 mg PO QAM 30 days doxycycline hyclate 100 mg PO BID 10 days ferrous sulfate (Feosol) 325 mg PO DAILY fluticasone propionate 50 mcg/actuation (Flonase Allergy Relief) 1 spray intranasal Q12H hydroxyzine HCl 50 mg PO BID PRN 90 days ibuprofen 800 mg PO Q8H ipratropium bromide 2 sprays intranasal BID-TID PRN lecithin 1,200 mg PO DAILY metoprolol succinate ER 12.5 mg (1/2 x 25 mg) PO BID 30 days norethindrone (contraceptive) 0.35 mg PO DAILY 84 days potassium 75 mg PO DAILY prednisone 10 mg PO DAILY sertraline 200 mg (2 x 100 mg) PO BEDTIME 90 days vitamin B complex ER 1 tab PO DAILY vitamin Q40-wrvml acid 500-400 mcg 1 tab PO DAILY Tobacco use date assessed: 07/29/23 Dental Screening Dental Screen Date: 07/29/23 Did you have a dental visit in the last 12 months?: Yes Did you have a dental problem in the last 6 months where you did not have access to dental care?: No Was dental information given to patient?: Patient has dentist HPI CPE HPI Details Patient?presents?for?complete?physical?exam?today. Reviewed?labs?with?patient. Mildly?elevated?LDL?cholesterol?but?HDL?ratios?are?good. Saw?Patient?recently?for?right?breast?mastitis. Also?for?palpitations and?started?metoprolol.??Workup?underway. Patient?saw?breast?specialist?today?who?does?not?feel?that?the?underlying?issue? is?masti tis?but?rather?hormonal?changes?in?very?dense?breast?tissue?and?has?advised?NSAI Ds?as?primary?management. 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[employer] [place] 2005 [facility] Medical History Sinus infection Screening examination for infectious disease Surgical History History of tonsillectomy and adenoidectomy History of hernia surgery History of umbilical hernia repair Family History Mother Hypothyroid High cholesterol Father Prostate cancer Thyroid disease High cholesterol Other Lipoma Social History Housing: House Alcohol intake: current Alcohol intake frequency: holidays/special occasions only Patient Tobacco Use Status: Never used Tobacco e-Cigarette/Vaping Use: Never Used Second Hand Smoke Exposure: Yes service: No Current occupational status: employed Current occupational exposures/hazards: No Cognitive needs: No Hearing needs: No Vision needs: No Questionnaire Thrive Questionnaire Date Thrive assessed: 09/04/22 AIME-7 AMB Questionnaire AIME-7 Date AIME - 7 assessed: 05/01/23 Source: Developed by Drs. Sanchez Nunez, Deirdre Mock, Helio Carlos and colleagues, with an educational alba from [employer]. Physical exam (Primary Care) Vital Signs: Last Vital Signs Pulse 85 07/29/23 12:08 BP 118/68 07/29/23 12:08 Pulse Ox 98 07/29/23 12:08 Oxygen Delivery Method Room Air 07/29/23 12:08 BMI result Body Mass Index 24.9 Tobacco/Smoking Status: Tobacco use Status Tobacco use date assessed 07/29/23 07/29/23 12:10 Patient Tobacco Use Status Never used Tobacco 07/29/23 12:10 e-Cigarette/Vaping Use Never Used 07/29/23 12:10 Thrive Assessment: Date of Thrive Assessment Date Thrive assessed 09/04/22 07/29/23 12:10 Assessment and Plan Assessment & Plan (1) Adult general medical exam: Code(s): Z00.00 - Encounter for general adult medical examination without abnormal findings Plan: 43-year-old?female?presents?for?complete?physical?exam Encouraged?healthy?diet?with?active?lifestyle?and?plenty?of?exercise (2) Breast pain, right: Code(s): N64.4 - Mastodynia Plan: Specialist?patient?saw?earlier?today?feels?that?this?is?not?mastitis?as?underlyi ng?issue.??Feels?that?this?is?hormonal?changes?in?very?dense?breast?tissue?causi ng?inflammation?and?pain. Recommends?NSAIDs?as?primary?method?of?management. She?has?been?using?ibuprofen I?will?send?a?script?for?meloxicam?which?she?can?try?instead?and?may?give?her?be tter?pain?control?and?longer?coverage Had?been?keeping?patient?out?of?work?but?she?feels?ready?to?return?to?work?with? pain?control. (3) Palpitations: Code(s): R00.2 - Palpitations Plan: Saw?patient?for?a?palpitations?yesterday?and?I?have?ordered?echocardiogram?and?H olter?monitor?as?well. Gave?her?a?script?for?metoprolol?which?she?has?not?started?yet. 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
== END 2023-07-29 12:54 | disposition home or self-care (01) ==
PROVIDERS: PCP Family Medicine; Visit Provider Family Medicine
DX: Z00.00 Encounter for general adult medical examination without abnormal findings (principal); N64.4 Mastodynia; R00.2 Palpitations; Z12.39 Encounter for other screening for malignant neoplasm of breast
CPT/HCPCS: 99396

== ENCOUNTER 2023-08-07 10:32 | Outpatient (AMB) | payer OTHER, SELFPAY ==
--- NOTE | 2023-08-07 11:15 | AM.OFFWIN_ITS ---
Intake Vital Signs 08/07/23 11:23 Height 5 ft 4 in Weight 145 lb BMI 24.9 BP 108/70 Blood Pressure Location Lt brachial Position Sitting Pulse 72 Pulse Source Pulse Oximeter Temp 98.4 F Temp Source Oral Pulse Oximetry (%) 98 Intake Visit Reasons: EP sore throat/kids have strepth Intake Note: pt is here c/o sore throat. started Patient Tobacco Use Status: Never used Tobacco Allergies bee venom protein (honey bee) Allergy (Intermediate, Verified 08/07/23 11:16) Swelling promethazine [Phenergan] Allergy (Unknown, Verified 08/07/23 11:16) Hives Sulfa (Sulfonamide Antibiotics) [SULFA (SULFONAMIDE ANTIBIOTICS)] Allergy (Unknown, Verified 08/07/23 11:16) HIVES lactose Adverse Reaction (Mild, Verified 08/07/23 11:16) Diarrhea Do you need a note to return to daycare/school/sports/work: Yes HPI HPI Comments History of Present Illness Details Patient is a 43-year-old female complaining of sore throat x3 days. She also states she has some fatigue a little bit of a postnasal drip and associated cough. She denies any fevers. She states that 2 of her 3 children are strep positive and are being treated with antibiotics. She denies any ear pain, sinus pain or shortness of breath. [facility] Medical History Sinus infection Screening examination for infectious disease Surgical History History of tonsillectomy and adenoidectomy History of hernia surgery History of umbilical hernia repair Family History Mother Hypothyroid High cholesterol Father Prostate cancer Thyroid disease High cholesterol Other Lipoma Social History Housing: House Alcohol intake: current Alcohol intake frequency: holidays/special occasions only Patient Tobacco Use Status: Never used Tobacco e-Cigarette/Vaping Use: Never Used Second Hand Smoke Exposure: Yes service: No Current occupational status: employed Current occupational exposures/hazards: No Cognitive needs: No Hearing needs: No Vision needs: No Review of Systems Const All systems reviewed & are unremarkable except as noted in HPI and below Physical Exam Vital Signs: Last Vital Signs Temp 98.4 F 08/07/23 11:23 Pulse 72 08/07/23 11:23 BP 108/70 08/07/23 11:23 Pulse Ox 98 08/07/23 11:23 BMI result Body Mass Index 24.9 Const General: cooperative, healthy appearing, comfortable and no acute distress Orientation/consciousness: patient oriented x3 Limitations: no limitations HEENT Head: Yes normal to inspection Ears: external ears normal and TM's normal bilaterally General nose exam: Normal external nose present, Normal nares present and No nasal discharge present Face and sinus: Yes normal facial exam and Yes sinuses nontender Mouth: Normal oral and palatal mucosa present and moist mucous membranes Throat: Yes uvula midline, Yes abnormal tonsil (Erythematous) and Yes posterior oropharynx abnormal (Exudates and erythematous) Eyes General: appearance normal, both eyes and all related structures Neck Neck: Yes normal visual inspection Resp Effort & Inspection: normal respiratory effort and able to speak in complete sentences Skin General skin exam: no rashes or lesions noted Neuro General: patient oriented x3 Extrem General: Yes normal to inspection and Yes no clubbing, cyanosis or edema Results AMB Rapid Strep AMB Rapid Strep Positive Last Edit by Martínez Salas CMA on 08/07/23 11:35 Results Reviewed Results Reviewed: Strep positive Assessment & Plan Assessment & Plan (1) Strep pharyngitis: Code(s): J02.0 - Streptococcal pharyngitis Plan: In-house test was positive for strep, we will treat with antibiotics, recommended [id number] medication and cool liquids Plan See above Orders: Orders AMB Rapid Strep Screen Today Z13.9 - Encounter for screening, unspecified Medications: New amoxicillin 500 mg PO Q12H 20 caps 0RF Coding Level of Care Code Est Pt Level 3 (80124) Diagnoses Strep pharyngitis J02.0
[2023-08-07 11:23] VITALS: BP 108/70; PULSE 72; TEMP 36.9; O2SAT 98; BMI 24.9
== END 2023-08-07 11:45 | disposition home or self-care (01) ==
PROVIDERS: PCP Family Medicine; Visit Provider Physician Assistant
DX: J02.9 Acute pharyngitis, unspecified (principal)
CPT/HCPCS: 87880; 99213

== ENCOUNTER → 2023-08-28 14:11 | Outpatient (REF) | payer OTHER, SELFPAY ==
--- NOTE | 2023-08-28 14:14 | HM_ITS ---
Conclusion: 1. Patient was monitored for total period of 2 days 2. Baseline was normal sinus rhythm with average heart of 85 beats per minute 3. No significant arrhythmias or pauses noted 4. No patient reported events MTDD
--- NOTE | 2023-08-28 14:14 | CA_ITS ---
Transthoracic Echocardiogram Patient (Last, First, Middle): Mehnaz Loaiza Ann Gender: Female Date of : 1980 Age: 43 Procedure Date: 08/28/2023 Procedure Type: Transthoracic Echocardiogram Location: OP Height: 162.56 cm Weight: 64.86 kg BSA: 1.70 m2 Heart Rate: bpm BP: 110 / 70 mmHg Charting Clerk: REINALDO Cobb MD: Morales Kim MD Agent Based Modeler: Keith Kapoor MD Symptoms: R00.2 - Palpitations Study Quality: Adequate ECG Rhythm: Sinus Conclusions: - Normal study Findings Left Ventricle Normal left ventricular size, thickness, and systolic function. The visually estimated ejection fraction is between 60-65%. Spectral Doppler is indicative of a normal filling pattern. Right Ventricle Normal right ventricular cavity size and systolic function. Atria Both atria are normal in size. There is no evidence of interatrial shunt. Aortic Valve Normal aortic valve structure and function. There is no aortic valve stenosis. There is no aortic valve regurgitation. Mitral Valve Normal mitral valve structure and function. There is no mitral valve regurgitation. There is no mitral valve stenosis. Pulmonic Valve The pulmonic valve is likely normal. There is trace pulmonic valve regurgitation. Tricuspid Valve Normal tricuspid valve structure. There is trace tricuspid valve regurgitation. The right ventricular systolic pressure is normal. The right ventricular systolic pressure is 17 mmHg. Normal right atrial pressure. There is no evidence of pulmonary hypertension. Great Vessels All visible segments of the aorta are normal in size. The pulmonary artery was not well visualized. There is no dilatation of the ascending aorta measuring 2.60 cm. There is no evidence of plaque in the aorta. Venous The inferior vena cava is normal in size and collapses greater than 50% with inspiration. Pericardium/Pleural There is no evidence of pericardial effusion. Prior Study Comparison No prior study available for comparison. Measurements 2D Linear Measurements IVSd: 0.90 0.6-0.9/0.6-1.0 cm LVIDd: 4.06 3.9-5.3/4.2-5.9 cm LVIDd Index: 2.39 2.4-3.2/2.2-3.1 cm/m2 LVIDs: 2.25 2.0-3.6 cm LVPWd: 0.82 0.7-1.1 cm Ao Root: 3.10 2.1-3.5 cm LA Diam: 2.90 2.7-3.8/3.0-4.0 cm LAIDs Index: 1.71 1.5-2.3 cm/m2 LV Mass: 131.22 67-162/88-224 g LV Mass Index: 77.19 43-95/49-115 g/m2 LVOT Diam: 1.90 3.0+(-)1.3 cm 2D Systolic Function EF 4C: 61.40 >55% EF 2C: 66.40 >55% EF BiP: 64.30 >55% Mitral Valve MV Pk E: 0.82 MV PK A: 0.52 MV Decel Time: 191.00 E/A: 1.60 E'Lateral: 13.70 E'Medial: 9.90 E/E' Med: 8.30 E/E' Lat: 6.00 PHT: 56.00 MVA PHT: 3.93 Decel Gordon: 4.29 Aortic Valve AoV Pk Omar: 1.58 AoV Mn Omar: 1.00 AoV VTI: 0.29 AoV Pk Grad: 10.00 Aov Mn Grad: 5.00 FRAN Cont.VTI: 2.47 LVOT LVOT Pk Omar: 1.18 LVOT Mn Omar: 0.82 LVOT VTI: 0.25 LVOT Pk Grad: 6.00 LVOT Mn Grad: 3.00 LVOT Diam: 1.90 LVOT Area: 2.84 Diastolic Function MV Pk E: 0.82 MV Pk A: 0.52 E/A: 1.60 E'Medial: 9.90 E/E' Med: 8.30 E' Laterial: 13.70 E/E' Lat: 6.00 Right Ventricle TAPSE (mm): 27.00 TVS' Omar: 12.80 Tricuspid Valve TR Pk Omar: 1.87 TR Pk Grad: 14.00 RA Press: 3.00 RVSP: 17.00 Great Vessels Aorta Ao Root-2D: 3.10 2.0-3.7 cm Ao Asc: 2.60 2.1-3.4 cm Ao Arch: 2.40 Updated in Other Vendor System with Status of Final Keith Kapoor MD electronically signed on 08/28/2023 3:42:51 PM with status of Final
== END ==
LOC: HO.CARD 14:11
PROVIDERS: PCP Family Medicine; Visit Provider Family Medicine
DX: R00.2 Palpitations (principal); R94.31 Abnormal electrocardiogram [ECG] [EKG]
CPT/HCPCS: 93225; 93306

== ENCOUNTER → 2023-08-28 14:14 | Outpatient (BNV) | payer OTHER, SELFPAY | PROVIDERS: PCP Family Medicine; Visit Provider Internal Medicine Cardiovascular Disease | DX: R00.0 Tachycardia, unspecified (principal) | CPT/HCPCS: 93227; 93306 ==

== ENCOUNTER → 2023-11-13 16:39 | Outpatient (AMB) | payer OTHER, SELFPAY ==
--- NOTE | 2023-11-13 16:47 | MHC.PC.OV ---
Vital Signs 11/13/23 16:50 Height 5 ft 4 in Weight 149 lb 6 oz BMI 25.6 BP 110/60 Blood Pressure Location Rt brachial Position Sitting Respiration 10 L Pulse 81 Pulse Source Pulse Oximeter Temp 99.2 F Temp Source Oral Pulse Oximetry (%) 97 Oxygen Delivery Method Room Air Intake Visit Reasons: follow up on specialist/palpatations Intake Note: follow up for palpitation Allergies bee venom protein (honey bee) Allergy (Intermediate, Verified 11/13/23 16:48) Swelling promethazine [Phenergan] Allergy (Unknown, Verified 11/13/23 16:48) Hives Sulfa (Sulfonamide Antibiotics) [SULFA (SULFONAMIDE ANTIBIOTICS)] Allergy (Unknown, Verified 11/13/23 16:48) HIVES lactose Adverse Reaction (Mild, Verified 11/13/23 16:48) Diarrhea Tobacco use date assessed: 07/29/23 Dental Screening Dental Screen Date: 07/29/23 HPI follow up on specialist/palpatations HPI Details 43 y/o female presents to f/u palpitations, echocardiogram and Holter monitor test. Trialing metoprolol. Denies any issues with metoprolol. Echocardiogram 08/28/23 showed a normal study. Holter monitor 08/28/23 showed: 1. Patient was monitored for total period of 2 days 2. Baseline was normal sinus rhythm with average heart of 85 beats per minute 3. No significant arrhythmias or pauses noted 4. No patient reported events On Adderall. Has been working well with her focus. Denies any worsening anxiety, decreased appetite or difficulty sleeping. [facility] Medical History Sinus infection Screening examination for infectious disease Surgical History History of tonsillectomy and adenoidectomy History of hernia surgery History of umbilical hernia repair Family History Mother Hypothyroid High cholesterol Father Prostate cancer Thyroid disease High cholesterol Other Lipoma Social History Housing: House Alcohol intake: current Alcohol intake frequency: holidays/special occasions only Patient Tobacco Use Status: Never used Tobacco e-Cigarette/Vaping Use: Never Used Second Hand Smoke Exposure: Yes service: No Current occupational status: employed Current occupational exposures/hazards: No Cognitive needs: No Hearing needs: No Vision needs: No Questionnaire Thrive Questionnaire Date Thrive assessed: 09/04/22 AIME-7 AMB Questionnaire AIME-7 Date AIME - 7 assessed: 05/01/23 Source: Developed by Drs. Sanchez Nunez, Deirdre Mock, Helio Carlos and colleagues, with an educational alba from [employer]. Review of Systems Const Denies chills, Denies fatigue, Denies fever(s), Denies headache(s) and Denies weakness ENT Denies dizziness and Denies headache(s) Card Denies dyspnea Resp Denies cough, Denies dyspnea, Denies wheezing and Denies other (shortness of breath) Musc Denies numbness and Denies tingling Neuro Denies dizziness, Denies headache(s), Denies numbness, Denies tingling and Denies weakness Psych Denies anxiety and Denies depression Endo Denies fatigue Aller/Immun Denies wheezing Physical exam (Primary Care) Vital Signs: Last Vital Signs Temp 99.2 F 11/13/23 16:50 Pulse 81 11/13/23 16:50 Resp 10 L 11/13/23 16:50 BP 110/60 11/13/23 16:50 Pulse Ox 97 11/13/23 16:50 Oxygen Delivery Method Room Air 11/13/23 16:50 BMI result Body Mass Index 25.6 Tobacco/Smoking Status: Tobacco use Status Tobacco use date assessed 07/29/23 11/13/23 16:51 Patient Tobacco Use Status Never used Tobacco 11/13/23 16:51 e-Cigarette/Vaping Use Never Used 11/13/23 16:51 Thrive Assessment: Date of Thrive Assessment Date Thrive assessed 09/04/22 11/13/23 16:51 Const General: well developed; No acute distress Nutritional Appearance: well nourished Orientation/consciousness: patient oriented x3 HENMT Head: Yes normocephalic and Yes atraumatic Eyes General: appearance normal, both eyes and all related structures Pupils: Equal, round and reactive pupils present EOM: EOMs intact bilaterally Resp Effort & Inspection: normal respiratory effort Auscultation: clear to auscultation bilaterally Cardio Rate: regular rate Rhythm: regular rhythm Heart sounds: S1 normal heart sound present, S2 normal heart sound present, no gallops, no murmurs and no rubs Neuro General: patient oriented x3 and gait normal Cranial nerves: Yes Equal, round and reactive pupils present Psych Affect: normal affect Coding Level of Care Code Est Pt Level 4 (49248) Diagnoses Palpitations R00.2 ADHD F90.9 Elevated LDL cholesterol level E78.00 Assessment & Plan Assessment & Plan (1) Palpitations: Code(s): R00.2 - Palpitations Category: Medical Plan: Holter?monitor?test?and?echocardiogram?normal. Had?trialed?metoprolol?which?is?helping - palpitations?are?manage She?can?continue?these?p.r.n. (2) ADHD: Code(s): F90.9 - Attention-deficit hyperactivity disorder, unspecified type Category: Medical Plan: Medication?is?working?well?for?focus?and?concentration This?does?not?seem?to?exacerbate?her?palpitations. This?does?not?give?her?problems?with?appetite?or?anxiety?or?sleep?problems. Continue?current?medication (3) Elevated LDL cholesterol level: Code(s): E78.00 - Pure hypercholesterolemia, unspecified Category: Medical Plan: She?had?been?taking?lecithin?though?she?has?stopped?this. She?is?thinking?about?resuming I?have?ordered?labs?and?she?can?get?them?checked?prior?to?her?next?visit?we?can?review?this?as?well Orders: Orders Lipid Panel Today Z00.00 - Encounter for general adult medical examination without abnormal findings Comprehensive [place]. Panel Fast Today Z00.00 - Encounter for general adult medical examination without abnormal findings Medications: New dextroamphetamine-amphetamine 10 mg ER (Adderall XR) MassPat Verified. Partial Fill upon patient request. 10 mg PO QAM 30 days 30 caps 0RF Refilled dextroamphetamine-amphetamine 10 mg ER (Adderall XR) MassPat Verified. Partial Fill upon patient request. 10 mg PO QAM 30 days 30 caps 0RF F90.9 - Attention-deficit hyperactivity disorder, unspecified type
[2023-11-13 16:50] VITALS: BP 110/60; PULSE 81; RESP 10; TEMP 37.3; O2SAT 97; BMI 25.6
== END ==
PROVIDERS: PCP Family Medicine; Visit Provider Family Medicine
DX: R00.2 Palpitations (principal); F90.9 Attention-deficit hyperactivity disorder, unspecified type; E78.00 Pure hypercholesterolemia, unspecified

== ENCOUNTER → 2023-11-13 16:39 | Outpatient (BNVA) | payer OTHER, SELFPAY | PROVIDERS: PCP Family Medicine; Visit Provider Family Medicine ==

== ENCOUNTER 2023-12-25 08:56 | Outpatient (AMB) | payer OTHER, SELFPAY ==
--- NOTE | 2023-12-25 09:06 | AM.OFFWIN_ITS ---
Intake Vital Signs 12/25/23 09:07 Height 5 ft 4 in BP 130/80 Blood Pressure Location Rt brachial Position Sitting Pulse 82 Pulse Source Pulse Oximeter Temp 98.7 F Temp Source Oral Pulse Oximetry (%) 97 Intake Visit Reasons: EP Loss of voice, sore throat, congestion Intake Note: pt is here for loss of voice denies thinking its strep, she states she thinks its laryngitis Patient Tobacco Use Status: Never used Tobacco Allergies bee venom protein (honey bee) Allergy (Intermediate, Verified 12/25/23 09:09) Swelling promethazine [Phenergan] Allergy (Unknown, Verified 12/25/23 09:09) Hives Sulfa (Sulfonamide Antibiotics) [SULFA (SULFONAMIDE ANTIBIOTICS)] Allergy (Unknown, Verified 12/25/23 09:09) HIVES lactose Adverse Reaction (Mild, Verified 12/25/23 09:09) Diarrhea Do you need a note to return to daycare/school/sports/work: Yes HPI HPI Comments History of Present Illness Details Patient is a 43-year-old female complaining of 3 days of a sore throat, loss of voice, dry cough, chest congestion, subjective fevers, a little bit of dizziness and sinus pain. She denies any shortness of breath or wheezing or history of asthma or COPD. She is eating and drinking normally, she did not test for COVID at home. 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 Patient states she has been managing her symptoms with ibuprofen, Flonase, DayQuil and NyQuil. [facility] Medical History Sinus infection Screening examination for infectious disease Surgical History History of tonsillectomy and adenoidectomy History of hernia surgery History of umbilical hernia repair Family History Mother Hypothyroid High cholesterol Father Prostate cancer Thyroid disease High cholesterol Other Lipoma Social History Housing: House Alcohol intake: current Alcohol intake frequency: holidays/special occasions only Patient Tobacco Use Status: Never used Tobacco e-Cigarette/Vaping Use: Never Used Second Hand Smoke Exposure: Yes service: No Current occupational status: employed Current occupational exposures/hazards: No Cognitive needs: No Hearing needs: No Vision needs: No Physical Exam Vital Signs: Last Vital Signs Temp 98.7 F 12/25/23 09:07 Pulse 82 12/25/23 09:07 BP 130/80 12/25/23 09:07 Pulse Ox 97 12/25/23 09:07 Const General: cooperative, healthy appearing, comfortable and no acute distress Orientation/consciousness: patient oriented x3 Limitations: no limitations HEENT Head: Yes normal to inspection Ears: hearing grossly normal bilaterally, external ears normal and TM's normal bilaterally General nose exam: Normal external nose present, Normal nares present and No nasal discharge present Face and sinus: Yes normal facial exam and Yes sinuses nontender Mouth: Normal oral and palatal mucosa present and moist mucous membranes Throat: Yes uvula midline and Yes posterior oropharynx abnormal (Erythema) Eyes General: appearance normal, both eyes and all related structures Neck Neck: Yes normal visual inspection Resp Effort & Inspection: normal respiratory effort, able to speak in complete sentences, Actively coughing, no respiratory distress, not tachypneic, no tripod positioning and no use of accessory muscles Auscultation: clear to auscultation bilaterally Cardio Rate: regular rate Rhythm: regular rhythm Heart sounds: normal S1 and S2 Skin General skin exam: no rashes or lesions noted Neuro General: patient oriented x3 Extrem General: Yes normal to inspection and Yes no clubbing, cyanosis or edema Assessment & Plan Assessment & Plan (1) URI (upper respiratory infection): Code(s): J06.9 - Acute upper respiratory infection, unspecified Qualifiers: URI type: acute laryngitis Qualified Code(s): J04.0 - Acute laryngitis Plan: Likely viral laryngitis, tested for flu COVID and RSV and recommended patient continue to use the treatments she is using. Educated patient on the proper use of Flonase. Wrote work note for her to stay out today and December 27 Plan See above Orders: Orders SARS-CoV2/FLU/RSV Today J06.9 - Acute upper respiratory infection, unspecified Coding Level of Care Code Est Pt Level 3 (13581) Diagnoses Acute laryngitis J04.0 URI type: acute laryngitis
[2023-12-25 09:07] VITALS: BP 130/80; PULSE 82; TEMP 37.1; O2SAT 97
== END 2023-12-25 09:33 | disposition home or self-care (01) ==
PROVIDERS: PCP Family Medicine; Visit Provider Physician Assistant
DX: J04.0 Acute laryngitis (principal)

== ENCOUNTER 2023-12-25 08:56 | Outpatient (REF) | payer OTHER, SELFPAY ==
[2023-12-25 11:50] LABS: Influenza A PCR NEGATIVE (Negative); Influenza B PCR NEGATIVE (Negative); Resp Syncy Virus RNA Qual PCR NEGATIVE (Negative); SARS COV2 PCR INHOUSE NEGATIVE (Negative)
== END 2023-12-25 08:57 | disposition home or self-care (01) ==
LOC: HO.LAB 08:56
PROVIDERS: PCP Family Medicine; Visit Provider Physician Assistant
DX: J06.9 Acute upper respiratory infection, unspecified (principal)
CPT/HCPCS: 0241U

== ENCOUNTER 2024-03-30 11:31 | Outpatient (AMB) | payer OTHER, SELFPAY ==
[2024-03-30 11:34] VITALS: BP 122/68; PULSE 85; O2SAT 98; BMI 25.3
--- NOTE | 2024-03-30 11:34 | A.OFFPC_ITS ---
Vital Signs 03/30/24 11:34 Height 5 ft 4 in Weight 147 lb 4 oz BMI 25.3 BP 122/68 Blood Pressure Location Lt brachial Position Sitting Pulse 85 Pulse Source Pulse Oximeter Pulse Oximetry (%) 98 Oxygen Delivery Method Room Air Intake Visit Reasons: f/u ADHD, elevated ldl cholesterol levels Allergies bee venom protein (honey bee) Allergy (Intermediate, Verified 03/30/24 11:41) Swelling promethazine [Phenergan] Allergy (Unknown, Verified 03/30/24 11:41) Hives Sulfa (Sulfonamide Antibiotics) [SULFA (SULFONAMIDE ANTIBIOTICS)] Allergy (Unknown, Verified 03/30/24 11:41) HIVES lactose Adverse Reaction (Mild, Verified 03/30/24 11:41) Diarrhea Tobacco use date assessed: 03/30/24 Dental Screening Dental Screen Date: 03/30/24 Did you have a dental visit in the last 12 months?: Yes Did you have a dental problem in the last 6 months where you did not have access to dental care?: No Was dental information given to patient?: Patient has dentist HPI f/u ADHD, elevated ldl cholesterol levels HPI Details 44 y/o female presents to f/u JHONNY lipi ds. No recent lipid panel to review. PHQ-9 8, AIME-7 11 today. Notes passive SI but no plan. She notes hot flashes. Medication has been working but has been noting adverse effects at a higher dose. Not worsening anxiety, sleep or appetite at current dose. [facility] Medical History Sinus infection Screening examination for infectious disease Surgical History History of tonsillectomy and adenoidectomy History of hernia surgery History of umbilical hernia repair Family History Mother Hypothyroid High cholesterol Father Prostate cancer Thyroid disease High cholesterol Other Lipoma Social History Housing: House Alcohol intake: current Alcohol intake frequency: holidays/special occasions only Patient Tobacco Use Status: Never used Tobacco e-Cigarette/Vaping Use: Never Used Second Hand Smoke Exposure: Yes service: No Current occupational status: employed Current occupational exposures/hazards: No Cognitive needs: No Hearing needs: No Vision needs: No Questionnaire PHQ-9 Over the last 2 weeks, how often have you been bothered by any of the following problems? 1. Little interest or pleasure in doing things: several days 2. Feeling down, depressed, or hopeless: several days 3. Trouble falling or staying asleep, or sleeping too much: not at all 4. Feeling tired or having little energy: more than half the days 5. Poor appetite or overeating: several days 6. Feeling bad about yourself - or that you are a failure or have let yourself or your family down: several days 7. Trouble concentrating on things, such as reading the newspaper or watching television: several days 8. Moving or speaking so slowly that other people could have noticed. Or the opposite - being so fidgety or restless that you have been moving around a lot more than usual: not at all 9. Thoughts that you would be better off or of hurting yourself in some way: several days Total score: 8 Depression Screening Interpretation: Positive Depression Screening Done: Yes 35937 - PHQ-9 Billing: Yes Source: Developed by Drs. Sanchez Nunez, Deirdre Mock, Helio Carlos and colleagues, with an educational alba from [employer] Thrive Questionnaire Date Thrive assessed: 03/30/24 I am a: Patient What is your living situation today?: I have a steady place to live Within the past 12 months, did the food you bought not last and you didn't have the money to get more?: Never true Within the past 12 months, did you worry whether your food would run out before you got money to buy more?: Never true Do you have trouble paying for medicines?: No Do you have trouble getting transportation to medical appointments?: No Do you have trouble paying your heating and electricity bill?: No Do you have trouble taking care of your child, family member or friend?: No Do you have trouble with day-to-day activities such as bathing, preparing meals, shopping, managing finances, etc.?: No Are you currently unemployed and looking for a job?: No Are you interested in more education?: No Please select the resources that you would like help with: None Currently or been in a relationship where the following occur: No concerns reported THRIVE Score: 0 AUDIT C Alcohol Use Questionnaire (AUDIT-C) 1. How often do you have a drink containing alcohol?: Never 3. How often do you have six or more drinks on one occasion?: Never Total Score: 0 AIME-7 AMB Questionnaire AIME-7 Date AIME - 7 assessed: 03/30/24 Feeling nervous, anxious, or on edge: 2 = More than half the days Not being able to stop or control worryin = Several days Worrying too much about different things: 1 = Several days Trouble relaxin = Nearly every day Being so restless that it is hard to sit still: 1 = Several days Becoming easily annoyed or irritable: 2 = More than half the days Feeling afraid as if something awful might happen: 1 = Several days Total AIME-7 score (0-4 normal; 5-9 mild; 10-14 moderate; 15-21 severe): 11 Source: Developed by Drs. Sanchez Nunez, Deirdre Mock, Helio Carlos and colleagues, with an educational alba from [employer] Review of Systems Const Denies chills, Denies fatigue, Denies fever(s), Denies headache(s) and Denies weakness ENT Denies dizziness and Denies headache(s) Card Denies dyspnea Resp Denies cough, Denies dyspnea, Denies wheezing and Denies other (shortness of breath) Musc Denies numbness and Denies tingling Neuro Denies dizziness, Denies headache(s), Denies numbness, Denies tingling and Denies weakness Psych Reports anxiety and Reports depression Endo Denies fatigue Aller/Immun Denies wheezing Physical exam (Primary Care) Vital Signs: Last Vital Signs Pulse 85 03/30/24 11:34 BP 122/68 03/30/24 11:34 Pulse Ox 98 03/30/24 11:34 Oxygen Delivery Method Room Air 03/30/24 11:34 BMI result Body Mass Index 25.3 Tobacco/Smoking Status: Tobacco use Status Tobacco use date assessed 07/29/23 12/25/23 08:54 Patient Tobacco Use Status Never used Tobacco 12/25/23 09:09 e-Cigarette/Vaping Use Never Used 12/25/23 08:54 Depression Screening Interpretation: Positive Thrive Assessment: Date of Thrive Assessment Date Thrive assessed 09/04/22 12/25/23 08:54 Currently or been in a relationship where the following occur: No concerns reported Const General: well developed; No acute distress Nutritional Appearance: well nourished Orientation/consciousness: patient oriented x3 [facility] Head: Yes normocephalic and Yes atraumatic Eyes General: appearance normal, both eyes and all related structures Pupils: Equal, round and reactive pupils present EOM: EOMs intact bilaterally Resp Effort & Inspection: normal respiratory effort Auscultation: clear to auscultation bilaterally Cardio Rate: regular rate Rhythm: regular rhythm Heart sounds: S1 normal heart sound present, S2 normal heart sound present, no gallops, no murmurs and no rubs Neuro General: patient oriented x3 and gait normal Cranial nerves: Yes Equal, round and reactive pupils present Psych Affect: normal affect Coding Level of Care Code Est Pt Level 4 (09533) Diagnoses ADHD F90.9 Elevated LDL cholesterol level E78.00 Depression with anxiety F41.8 Hot flashes R23.2 Additional Codes PHQ-9 - 69904 - PHQ-9 Billing: Yes ([id number]) Assessment & Plan Assessment & Plan (1) ADHD: Code(s): F90.9 - Attention-deficit hyperactivity disorder, unspecified type Category: Medical Plan: Medication?is?efficacious;?higher?doses?were?causing?adverse?effects?however. Not?worsening?anxiety,?sleep?or?appetite?at?current?dose. Will?continue?medication?as?prescribed (2) Elevated LDL cholesterol level: Code(s): E78.00 - Pure hypercholesterolemia, unspecified Category: Medical Plan: Due?to?recheck?cholesterol?levels. Had?been?on?lecithin?previously?and?discontinued Will?recheck?lipids?along?with?direct?LDL?today (3) Depression with anxiety: Code(s): F41.8 - Other specified anxiety disorders Category: Medical Plan: Ongoing?anxiety?and depression?which?patient?notices?seems?worse?with hormon e?changes She?is?on?sertraline,?bupropion?and?also?has?hydroxyzine She?will?continue?these?and?continue?with?therapist.??She?has?an?upcoming?appoin tment?with?a?psych?med?provider. Patient?notes?some?passive?SI?but?no plan. She?contracts?for?safety?and?understands?that?she?can?call?here,?her?therapist?o r?go?to?crisis?if?she?has?more?active?thoughts?or?plan. No?changes?to?her?medications?today?as?s he?has?a?new?appointment?with?a?psych?med?provider?coming. (4) Hot flashes: Code(s): R23.2 - [place] Category: Medical Plan: Patient?notes?flashes?and?and?mood?changes?that?coincide?with?her hormone?changes/cycle. She?will?follow-up?with?her?crab catcher Plan ADHD Anxiety/Depression & ?SI Lipids Palpitations - Metoprolol d/c'd Orders: Orders LDL Cholesterol Direct Today E78.00 - Pure hypercholesterolemia, unspecified, E78.5 - Hyperlipidemia, unspecified Lipid Panel Today E78.00 - Pure hypercholesterolemia, unspecified, Z00.00 - Encounter for general adult medical examination without abnormal findings Follicle Stimulating Hormone Today R23.2 - [place] Lutenizing Hormone Today R23.2 - [place] Complete Blood Count Auto Diff Today D64.9 - Anemia, unspecified, Z00.00 - Encounter for general adult medical examination without abnormal findings TSH reflex Free T4 Today R23.2 - [place], Z00.00 - Encounter for general adult medical examination without abnormal findings Comprehensive Met. Panel Today R23.2 - [place] Medications: Changed From metoprolol succinate ER 12.5 mg (1/2 x 25 mg) PO BID 30 tabs 1RF R00.2 - Palpitations To metoprolol succinate ER 12.5 mg (1/2 x 25 mg) PO BID 90 days 90 tabs 3RF R00.2 - Palpitations Refilled dextroamphetamine-amphetamine 10 mg ER (Adderall XR) [facility]Pat Verified. Partial Fill upon patient request. 10 mg PO QAM 30 days 30 caps 0RF F90.9 - Attention-deficit hyperactivity disorder, unspecified type hydroxyzine HCl 50 mg PO BID 90 days PRN 45 tabs 1RF anxiety
== END 2024-03-30 12:12 | disposition home or self-care (01) ==
PROVIDERS: PCP Family Medicine; Visit Provider Family Medicine
DX: F90.9 Attention-deficit hyperactivity disorder, unspecified type (principal); E78.00 Pure hypercholesterolemia, unspecified; F41.8 Other specified anxiety disorders; R23.2 Flushing

== ENCOUNTER → 2024-03-30 11:31 | Outpatient (BNVA) | payer OTHER, SELFPAY | PROVIDERS: PCP Family Medicine; Visit Provider Family Medicine | DX: F90.9 Attention-deficit hyperactivity disorder, unspecified type (principal); E78.00 Pure hypercholesterolemia, unspecified; F41.8 Other specified anxiety disorders; R23.2 Flushing; Z79.899 Other long term (current) drug therapy | CPT/HCPCS: 96127 ==

== ENCOUNTER 2024-03-30 12:17 | Outpatient (REF) | payer OTHER, SELFPAY ==
[2024-03-30 14:17] LABS: MANUAL DIFF FLAG NO
[2024-03-30 14:25] LABS: Basophils Percent Auto 0.5 % (0-2); Eosinophils Absolute Auto 0.2 X10*3/uL (0.0-0.4); Eosinophils Percent Auto 2.2 % (0-4); Hematocrit 36.4 % (37.0-47.0); Imm Gran Abs Auto 0.02 X10*3/uL (0.00-0.03); Imm Gran Pct Auto 0.2 % (0.0-0.4); Lymphocytes Absolute Auto 2.2 X10*3/uL (1.2-4.9); Mean Corpuscular Hemoglobin 27.1 pg (27.0-33.0); Mean Corpuscular Volume 82.2 fL (80.0-98.0); Mean Platelet Volume 10.5 fL (9.4-12.3); Monocytes Absolute Auto 0.5 X10*3/uL (0.1-1.2); Monocytes Percent Auto 5.9 % (2-11); Neutrophils Absolute Auto 5.1 x10*3/uL (2.0-8.3); Neutrophils Percent Auto 64.2 % (45-73); Platelet Count 304 X10*3/uL (160-400); Red Blood Count 4.43 X10*6/uL (4.20-5.50); Red Cell Distribution Width 13.5 % (11.0-16.0)
[2024-03-30 14:50] LABS: Alanine Aminotransferase 17 U/L (0-31); Albumin Level 4.4 g/dL (3.5-5.0); Alkaline Phosphatase 73 U/L (39-117); Anion Gap 10 (12-20); Aspartate Amino Transferase 20 U/L (5-31); Bilirubin Total 0.2 mg/dL (0.0-1.0); Blood Urea Nitrogen 10 mg/dL (9-16); Calcium 9.2 mg/dL (8.4-10.2); Carbon Dioxide 25 mmol/L (22-29); Chloride 108 mmol/L (96-108); Cholesterol 189 mg/dL (<200); Estimated Glomerular Filt Rate > 60; Glucose Random 102 mg/dL (60-115); HDL Cholesterol 61 mg/dL (>40); LDL Cholesterol Calculated 106 mg/dL (<100); Potassium 3.8 mmol/L (3.3-5.1); Sodium 139 mmol/L (135-145); Total Protein 7.9 g/dL (6.5-8.0); Triglycerides 113 mg/dL (<150)
[2024-03-31 04:59] LABS: Follicle Stimulating Hormone 3.4 mIU/mL; Lutenizing Hormone 3.4 mIU/mL
[2024-03-31 13:38] LABS: LDL Cholesterol Direct 115 mg/dL (<100)
== END 2024-03-30 12:18 | disposition home or self-care (01) ==
LOC: HO.WFDLDS 12:17
PROVIDERS: Visit Provider Family Medicine
DX: Z00.00 Encounter for general adult medical examination without abnormal findings (principal); D64.9 Anemia, unspecified; R23.2 Flushing; E78.5 Hyperlipidemia, unspecified; E78.00 Pure hypercholesterolemia, unspecified
CPT/HCPCS: 36415; 80053; 80061; 83001; 83002; 83721; 84443; 85025

== ENCOUNTER 2024-10-13 15:37 | Outpatient (AMB) | payer OTHER, SELFPAY ==
--- NOTE | 2024-10-13 15:57 | A.OFFPC_ITS ---
Vital Signs 10/13/24 16:00 Height 5 ft 4 in Weight 149 lb BMI 25.6 BP 109/69 Blood Pressure Location Rt brachial Position Sitting Respiration 12 Pulse 74 Pulse Source Pulse Oximeter Temp 97.2 F Temp Source Temporal Artery Scan Pulse Oximetry (%) 100 Oxygen Delivery Method Room Air Intake Visit Reasons: f/u ADHD Intake Note: Follow up adhd. Owner Oral Surgeon Required: No Allergies bee venom protein (honey bee) Allergy (Intermediate, Verified 10/13/24 15:57) Swelling promethazine (Phenergan) Allergy (Unknown, Verified 10/13/24 15:57) Hives Sulfa (Sulfonamide Antibiotics) (SULFA (SULFONAMIDE ANTIBIOTICS)) Allergy (Unknown, Verified 10/13/24 15:57) HIVES lactose Adverse Reaction (Mild, Verified 10/13/24 15:57) Diarrhea Medication List - Last Reconciled 10/13/24 by Morales Kim MD apple cider vinegar mg PO bupropion HCl 75 mg PO BID 90 days calcium-magnesium 750-465 mg 1 tab PO DAILY cholecalciferol (vitamin D3) (Vitamin D3) 25 mcg PO DAILY dextroamphetamine-amphetamine 10 mg ER (Adderall XR) 10 mg PO QAM 30 days ferrous sulfate (Feosol) 325 mg PO DAILY fluticasone propionate 50 mcg/actuation (Flonase Allergy Relief) 1 spray intranasal Q12H hydroxyzine HCl 50 mg PO BID PRN 90 days ibuprofen 800 mg PO Q8H ipratropium bromide 2 sprays intranasal BID-TID PRN metoprolol succinate ER 12.5 mg (1/2 x 25 mg) PO BID 90 days sertraline 200 mg (2 x 100 mg) PO BEDTIME 90 days vitamin B complex ER 1 tab PO DAILY vitamin I45-rhvtk acid 500-400 mcg 1 tab PO DAILY Tobacco use date assessed: 10/13/24 Dental Screening Dental Screen Date: 10/13/24 Did you have a dental visit in the last 12 months?: Yes Did you have a dental problem in the last 6 months where you did not have access to dental care?: No Was dental information given to patient?: Patient has dentist HPI f/u ADHD HPI Details 44 y/o female presents to f/u ADHD. She is on Adderall 10mg extended release in the morning. Denies increased anxiety/appetite issues. Sleeps well. Also on sertraline and bupropion for mood. [facility]LY [facility] Medical History Sinus infection Screening examination for infectious disease Surgical History History of tonsillectomy and adenoidectomy History of hernia surgery History of umbilical hernia repair Family History Mother Hypothyroid High cholesterol Father Prostate cancer Thyroid disease High cholesterol Other Lipoma Social History Housing: House Alcohol intake: current Alcohol intake frequency: holidays/special occasions only Patient Tobacco Use Status: Never used Tobacco e-Cigarette/Vaping Use: Never Used Second Hand Smoke Exposure: Yes service: No Current occupational status: employed Current occupational exposures/hazards: No Cognitive needs: No Hearing needs: No Vision needs: No Questionnaire Thrive Questionnaire Date Thrive assessed: 03/30/24 I am a: Patient What is your living situation today?: I have a steady place to live Within the past 12 months, did the food you bought not last and you didn't have the money to get more?: Never true Within the past 12 months, did you worry whether your food would run out before you got money to buy more?: Never true Do you have trouble paying for medicines?: No Do you have trouble getting transportation to medical appointments?: No Do you have trouble paying your heating and electricity bill?: No Do you have trouble taking care of your child, family member or friend?: No Do you have trouble with day-to-day activities such as bathing, preparing meals, shopping, managing finances, etc.?: No Are you currently unemployed and looking for a job?: No Are you interested in more education?: No Please select the resources that you would like help with: None Currently or been in a relationship where the following occur: No concerns repor vaughn THRIVE Score: 0 AIME-7 AMB Questionnaire AIME-7 Date AIME - 7 assessed: 03/30/24 Source: Developed by Drs. Sanchez Nunez, Deirdre Mock, Helio Carlos and colleagues, with an educational alba from [employer]. Review of Systems Const Denies chills, Denies fatigue, Denies fever(s), Denies headache(s) and Denies weakness ENT Denies dizziness and Denies headache(s) Card Denies chest pain, Denies lightheadedness, Denies dyspnea and Denies other (Palpitations) Resp Denies cough, Denies dyspnea, Denies wheezing and Denies other ( shortness of breath) Musc Denies numbness and Denies tingling Neuro Denies dizziness, Denies headache(s), Denies numbness, Denies tingling, Denies paresthesias and Denies weakness Psych Denies anxiety and Denies depression Endo Denies fatigue Aller/Immun Denies wheezing Physical exam (Primary Care) Vital Signs: Last Vital Signs Temp 97.2 F 10/13/24 16:00 Pulse 74 10/13/24 16:00 Resp 12 10/13/24 16:00 BP 109/69 10/13/24 16:00 Pulse Ox 100 10/13/24 16:00 Oxygen Delivery Method Room Air 10/13/24 16:00 BMI result Body Mass Index 25.6 Tobacco/Smoking Status: Tobacco use Status Tobacco use date assessed 10/13/24 10/13/24 16:02 Patient Tobacco Use Status Never used Tobacco 10/13/24 16:02 e-Cigarette/Vaping Use Never Used 10/13/24 16:02 Thrive Assessment: Date of Thrive Assessment Date Thrive assessed 03/30/24 10/13/24 16:02 Currently or been in a relationship where the following occur: No concerns reported Const General: no acute distress and well developed Nutritional Appearance: well nourished Orientation/consciousness: patient oriented x3 [facility] Head: Yes normocephalic and Yes atraumatic Eyes General: appearance normal, both eyes and all related structures Pupils: Equal, round and reactive pupils present EOM: EOMs intact bilaterally Resp Effort & Inspection: normal respiratory effort Auscultation: clear to auscultation bilaterally Cardio Rate: regular rate Rhythm: regular rhythm Heart sounds: S1 normal heart sound present, S2 normal heart sound present, no gallops, no murmurs and no rubs Neuro General: patient oriented x3 and gait normal Cranial nerves: Yes Equal, round and reactive pupils present Psych Affect: normal affect Coding Level of Care Code Est Pt Level 3 (73657) Diagnoses ADHD F90.9 Depression with anxiety F41.8 Assessment & Plan Assessment & Plan (1) ADHD: Code(s): F90.9 - Attention-deficit hyperactivity disorder, unspecified type Category: Medical Plan: Medication is efficacious and is not causing any adverse effects such as increased anxiety, appetite suppression or insomnia. Continue current medication (2) Depression with anxiety: Code(s): F41.8 - Other specified anxiety disorders Category: Medical Plan: She is on sertraline and bupropion Currently stable and she has a therapist and psych med provider Continue current medications Encouraged exercise Orders: Orders Comprehensive Carbon. Panel Fast Today Z00.00 - Encounter for general adult medical examination without abnormal findings Complete Blood Count Auto Diff Today Z00.00 - Encounter for general adult medical examination without abnormal findings Vitamin B12 and Folate Today E53.8 - Deficiency of other specified B group vitamins Vitamin D 25-OH Total Today E55.9 - Vitamin D deficiency, unspecified Lipid Panel Today Z00.00 - Encounter for general adult medical examination without abnormal findings TSH reflex Free T4 Today Z00.00 - Encounter for general adult medical examination without abnormal findings Microalbumin, Random (w Creat) Today I10 - Essential (primary) hypertension
[2024-10-13 16:00] VITALS: BP 109/69; PULSE 74; RESP 12; TEMP 36.2; O2SAT 100; BMI 25.6
--- OUTSIDE RECORDS SUMMARY | 2024-10-13 16:29 | XMS_ITS | Patient Health Record ---
Author Organization [facility] Address [address] [place] [address] Care Team Providers Care Independent Distributor Name Role Phone Matt RODRIGUEZ, Sasha Primary Care Provider John Villeda Unavailable [phone] Allergies Allergen (clinical drug ingredient) Drug/Non Drug Allergy documented on EMR Reaction Allergy Type Onset Date Status Lactose Unknown Drug Allergy Active promethazine Phenergan Itching Drug Allergy Acti ve sulfa Rash Drug Allergy Active bee sting Swelling Drug Allergy Active Reason For Referral No Information Medications Medication SIG (Take, Route, Frequency, Duration) Notes Start Date End Date Status Sertraline HCl 200 MG Active Prenat Vit-Fe Gly [id number]-[id number] Active Social History Tobacco Use: Social History Observation Description Date Details (start date - stop date) Never Smoker NA - NA Tobacco Use/Smoking Question Answer Notes Are you a: nonsmoker Additional Findings: Tobacco Non-User Current no n-smoker Alcohol Screen Question Answer Notes Did you have a drink containing alcohol in the p ast year? No Points 0 Interpretation Negative Problems Problem Type SNOMED Code ICD Code Onset Dates Problem Status W/U Status Risk Notes Problem Plantar wart (74834023) Plantar wart (B07.0) Active confirmed Plan Of Treatment Pending Test Test Name Order Date [id number] Destruction, 1-14 08/14/2015 Insurance Providers Payer Name Payer Address Payer Phone Subscriber Number Group Number Insured Name Patient Relationship to Insured Coverage Start Date Coverage End Date [employer] ([employer]) [address] [place] [facility] [place] [id number] Mehnaz Loaiza Self - patient is the insured Medical (General) History Medical History History ICD Code Anxiety Back,Hip,and Knee pain Depression Warts Chicken pox Surgical History Surgery Date(Month/Year) tonsillectomy and adenoidectomy 05/1994
== END 2024-10-13 16:54 | disposition home or self-care (01) ==
LOC: HO.HMCFM 15:37
PROVIDERS: PCP Family Medicine; Visit Provider Family Medicine
DX: F90.9 Attention-deficit hyperactivity disorder, unspecified type (principal); F41.8 Other specified anxiety disorders

== ENCOUNTER 2025-02-06 15:12 | Emergency (ER) | payer OTHER, SELFPAY ==
--- NOTE | ~2025-02-06 | CT_ITS ---
CLINICAL HISTORY: RLQ pain, rule out appy CT abdomen and pelvis with contrast Comparison: None provided. Findings: No consolidation or effusion. Multiple soft tissue densities are present at the left upper abdominal quadrant which appears similar in attenuation, consistent with splenic tissue. The pancreatic tail is not visualized, possibly surgically absent. The liver is enlarged. The liver appears normal in contour. The gallbladder and bilateral adrenal glands are within normal limits for appearance. No hydronephrosis or hydroureter. No bowel obstruction, pneumoperitoneum, or pneumatosis. 1.7 cm left adnexal cyst. The bladder is minimally distended with fluid, limiting its evaluation. Normal appendix. No acute fracture visualized. IMPRESSION: 1. No acute inflammatory process identified within the abdomen or pelvis. Normal appendix. 2. Hepatomegaly. This document has been electronically signed by: Martínez Porras MD on 02/06/2025 21:09:46
[2025-02-06 15:27] VITALS: BP 129/71; PULSE 68; RESP 18; TEMP 36.6; O2SAT 98; BMI 25.5
--- NOTE | 2025-02-06 15:29 | ED.GENADULT ---
HPI - General Adult General Chief complaint: Abdominal Pain Stated complaint: Lower Right ABD Pain Time Seen by Provider: 02/06/25 19:45 Source: patient, RN notes reviewed and old records reviewed Mode of arrival: ambulatory Limitations: no limitations History of Present Illness ED Provider: Maurice NICHOLSON narrative: 44-year-old female presents for evaluation of right lower abdominal/pelvic pain pain Her pain started 10 days ago. She spoke to her OBGYN who recommended that she be evaluated for appendicitis. She has a history of ovarian cysts and feels that this is similar. Her pain is intermittent, 5/10 and achy. She has no associated symptoms including nausea, vomiting, diarrhea pain Denies any fevers, chills, vaginal bleeding or discharge Related Data Home Medications ?Medication ?Instructions ?Recorded ?Confirmed calcium-magnesium 750 mg-465 mg 1 tab PO DAILY 08/15/20 10/13/24 tablet cholecalciferol (vitamin D3) 25 25 mcg PO DAILY 08/15/20 10/13/24 mcg (1,000 unit) capsule (Vitamin D3) vitamin B complex 1 tab PO DAILY 08/15/20 10/13/24 apple cider vinegar 300 mg tablet mg PO 12/11/22 10/13/24 ferrous sulfate 325 mg (65 mg 325 mg PO DAILY 05/09/23 10/13/24 iron) tablet (Feosol) vitamin B12 500 mcg-folic acid 400 1 tab PO DAILY 05/09/23 10/13/24 mcg tablet Previous Rx's ?Medication ?Instructions ?Recorded ibuprofen 800 mg tablet 800 mg PO Q8H #90 tabs 02/26/21 fluticasone propionate 50 1 spray intranasal Q12H #16 grams 04/08/22 mcg/actuation nasal spray,suspension (Flonase Allergy Relief) ipratropium bromide 21 mcg (0.03 2 spray intranasal BID-TID PRN 01/21/23 %) nasal spray allergy symptoms #30 mL bupropion HCl 75 mg tablet 75 mg PO BID 90 days #180 tabs 08/07/23 hydroxyzine HCl 50 mg tablet 50 mg PO BID PRN anxiety 90 days 03/30/24 #45 tabs metoprolol succinate 25 mg 12.5 mg (1/2 x 25 mg) PO BID 90 03/30/24 tablet,extended release 24 hr days #90 tabs dextroamphetamine-amphetamine ER 10 mg PO QAM 30 days #30 caps 04/30/24 10 mg 24hr capsule,extend release (Adderall XR) sertraline 100 mg tablet 200 mg (2 x 100 mg) PO BEDTIME 90 11/15/24 days #180 tabs Allergies Allergy/AdvReac Type Severity Reaction Status Date / Time bee venom protein (honey bee) Allergy Intermediate Swelling Verified 02/06/25 15:30 promethazine (Phenergan) Allergy Unknown Hives Verified 02/06/25 15:30 Sulfa (Sulfonamide Allergy Unknown HIVES Verified 02/06/25 15:30 Antibiotics) (SULFA (SULFONAMIDE ANTIBIOTICS)) lactose AdvReac Mild Diarrhea Verified 02/06/25 15:30 Review of Systems Constitutional: Constitutional: Reports as per HPI, Denies chills, Denies fatigue, Denies fever(s) and Denies headache(s) ENT: Denies headache(s) Cardiovascular: Cardiovascular: Denies chest pain and Denies dyspnea Respiratory: Respiratory: Denies cough and Denies dyspnea Gastrointestinal: Gastrointestinal: Denies constipation and Denies vomiting Genitourinary: Genitourinary: Denies dysuria Neurologic: Denies headache(s) and Denies focal weakness Endocrine: Endocrine: Denies fatigue PMF Past Medical History Medical History Sinus infection Screening examination for infectious disease Surgical History History of tonsillectomy and adenoidectomy History of hernia surgery History of umbilical hernia repair Family History Family History Mother Hypothyroid High cholesterol Father Prostate cancer Thyroid disease High cholesterol Other Lipoma Social History Social History Housing: House Alcohol intake: current Alcohol intake frequency: holidays/special occasions only Patient Tobacco Use Status: Never used Tobacco e-Cigarette/Vaping Use: Never Used Second Hand Smoke Exposure: Yes Advance Directives: No Advance Directives Information Provided: No Do you have a plan to hurt others: No Plan service: No Current occupational status: employed Current occupational exposures/hazards: No Cognitive needs: No Hearing needs: No Vision needs: No Physical Exam ED Vital Signs: Vital Signs - 24 hr 12/29/25 15:27 Temperature 97.9 F Pulse Rate 68 Respiratory Rate 18 Blood Pressure 129/71 Pulse Oximetry 98 Oxygen Delivery Method Room Air BMI result Body Mass Index 25.5 Const General: healthy appearing, comfortable, no acute distress, alert and awake Nutritional Appearance: well nourished Orientation/consciousness: patient oriented x3 HENMT Head: Yes normocephalic and Yes atraumatic Throat: Yes posterior oropharynx normal Eyes Eyelids: Yes eyelids normal Conjunctivae: conjunctivae normal Sclerae: sclerae normal Corneas: corneas normal Pupils: Equal, round and reactive pupils present EOM: EOMs intact bilaterally Neck Neck: Yes full ROM Resp Effort & Inspection: normal respiratory effort, able to speak in complete sentences and not labored GI Inspection: No distended Palpation (GI): Soft to palpation, not firm, Tenderness to palpation present (GI) in the RLQ, no guarding and not rigid Auscultation: normoactive bowel sounds Skin General skin exam: elasticity normal Neuro General: patient oriented x3 Cranial nerves: Yes Equal, round and reactive pupils present and Yes Bilaterally intact EOM present Cognition (Neuro): normal cognition Extrem Other: Moving all extremities well without any obvious deformities Course Course Course Narrative: Rapid medical examination performed in triage by Jennifer Phillips PA-C: Patient is a 44 year old female presenting to the emergency department with right sided lower abdominal pain. Detailed physical exam and review of systems are deferred to the press catcher. Labs and swabs ordered. Patient placed back in the waiting room pending room availability and results. Medications Administered Discontinued Medications Generic Name Dose Route Start Last Admin Trade Name Freq PRN Reason Stop Dose Admin Iohexol 100 ml 02/06/25 20:08 02/06/25 20:09 Iohexol 350 Mg/Ml 100 Ml Infus..Btl IV 02/06/25 20:09 85 ml ONCE ONE Administration Ketorolac Tromethamine 15 mg 02/06/25 20:04 02/06/25 20:12 Ketorolac Tromethamine 15 Mg/Ml Vial IVPUSH 02/06/25 20:05 15 mg ONCE ONE Administration Medical Decision Making Medical Decision Making MDM Narrative: 44-year-old female presents for evaluation of right lower abdominal/pelvic pain. Her OBGYN since her to be ruled out for acute appendicitis. Given that her pain has been present for 10 days and she has no leukocytosis, fever and her pain seems fairly mild I have a very low suspicion for acute appendicitis. Her labs are quite reassuring. The patient's urinalysis shows small esterase, no nitrites. The patient denies any UTI symptoms, we will defer treatment this time as this could be a contaminate. Differential Diagnosis Differential Diagnoses: The differential diagnosis associated with the presentation includes Abdominal pain Ovarian cyst Acute appendicitis Constipation UTI Ovarian torsion less likely Lab Data MDM Lab Attestation statement: I reviewed the patient's lab results. No leukocytosis or significant anemia. Normal platelet count. No electrolyte abnormalities warranting intervention. 02/06/25 16:18 02/06/25 16:17 Labs: Lab Results 02/06/25 02/06/25 02/06/25 Range/Units 16:17 16:18 19:37 WBC 7.7 (4.8-10.8) X10*3/uL RBC 4.28 (4.20-5.50) X10*6/uL Hgb 11.5 L (12.0-16.0) g/dl Hct 35.0 L (37.0-47.0) % MCV 81.8 (80.0-98.0) fL MCH 26.9 L (27.0-33.0) pg MCHC 32.9 (31.0-35.0) g/dl RDW 13.3 (11.0-16.0) % Plt Count 265 (160-400) X10*3/uL MPV 10.2 (9.4-12.3) fL Immature Gran % (Auto) 0.1 (0.0-0.4) % Neut % (Auto) 50.6 (45-73) % Lymph % (Auto) 40.1 H (20-40) % [place] % (Auto) 6.6 (2-11) % Eos % (Auto) 2.1 (0-4) % Baso % (Auto) 0.5 (0-2) % Lymph # (Auto) 3.1 (1.2-4.9) X10*3/uL [place] # (Auto) 0.5 (0.1-1.2) X10*3/uL Eos # (Auto) 0.2 (0.0-0.4) X10*3/uL Baso # (Auto) 0.0 (0.0-0.2) X10*3/uL Abs Immat Gran (auto) 0.01 (0.00-0.03) X10*3/uL Absolute Neuts (auto) 3.9 (2.0-8.3) x10*3/uL Absolute Nucleated RBC 0.000 (0.0-0.012) X10*3/uL Nucleated RBC % (auto) 0.0 (0.0-0.2) /100WBC Sodium 143 (135-145) mmol/L Potassium 3.8 (3.3-5.1) mmol/L Chloride 112 H (96-108) mmol/L Carbon Dioxide 24 (22-29) mmol/L Anion Gap 11 L (12-20) BUN 8 L (9-16) mg/dL Creatinine 0.63 (0.5-1.4) mg/dL Estim Creat Clear Calc 109.7 Estimated GFR > 60 Random Glucose 101 (60-115) mg/dL Calcium 8.8 (8.4-10.2) mg/dL Magnesium 2.0 (1.6-2.6) mg/dL Total Bilirubin 0.2 (0.0-1.0) mg/dL AST 20 (5-31) U/L ALT 20 (0-31) U/L Alkaline Phosphatase 66 (39-117) U/L Total Protein 6.7 (6.5-8.0) g/dL Albumin 4.2 (3.5-5.0) g/dL Beta HCG, Quant < 2 mIU/mL Urine Color Yellow Urine Appearance Clear Urine pH 7.0 (5.0-9.0) Ur Specific [place] 1.010 (1.005-1.025) Urine Protein Negative (Neg-Trace) mg/dL Urine Glucose (UA) Negative (Negative) mg/dL Urine Ketones Negative (Negative) mg/dL Urine Blood Negative (Negative) Urine Nitrite Negative (Negative) Ur Leukocyte Esterase Small (1+) H (Negative) Urine RBC 3-5 H (0-2) /HPF Urine WBC 0-5 (0-5) /HPF Ur Squamous Epith Cells 0-2 (0-2) /HPF Urine Bacteria None Seen (None Seen) Hyaline Casts 0-2 (0-2) /LPF Influenza Type A (PCR) NEGATIVE (Negative) Influenza Type B (PCR) NEGATIVE (Negative) RSV RNA Qual (PCR) NEGATIVE (Negative) SARS-CoV-2 RNA (RT-PCR) NEGATIVE (Negative) Discharge Plan Discharge Clinical Impression: Abdominal pain Patient Disposition: Home, Self-Care Instructions: Abdominal Pain (ED) Additional Instructions: Your workup in the ER today was reassuring. Your CT scan showed a normal appendix specifically. Your pain may be related to an ovarian cyst. Follow up with your primary doctor, return for new or worsening symptoms Prescriptions: No Action fluticasone propionate [Flonase Allergy Relief] 50 mcg/actuation spray,suspension 1 spray intranasal Q12H Qty: 16 3RF Rx Instructions: administer into each nostril bupropion HCl 75 mg tablet 75 mg PO BID 90 Days Qty: 180 3RF dextroamphetamine-amphetamine [Adderall XR] 10 mg capsule,extended release 24hr 10 mg PO QAM 30 Days Qty: 30 0RF Rx Instructions: MassPat Verified. Partial Fill upon patient request. sertraline 100 mg tablet 200 mg PO BEDTIME 90 Days Qty: 180 3RF B Complex Tablet Extended Release 1 tab PO DAILY Calcium And Magnesium 750-465 mg Tablet 1 tab PO DAILY cholecalciferol (vitamin D3) [Vitamin D3] 25 mcg (1,000 unit) Capsule 25 mcg PO DAILY ibuprofen 800 mg tablet 800 mg PO Q8H Qty: 90 0RF apple cider vinegar 300 mg tablet PO ipratropium bromide 21 mcg (0.03 %) spray,non-aerosol 2 spray intranasal BID-TID PRN (Reason: allergy symptoms) Qty: 30 0RF Rx Instructions: administer into each nostril vitamin O42-wusji acid 500-400 mcg tablet 1 tab PO DAILY Rx Instructions: administer with a meal ferrous sulfate [Feosol] 325 mg (65 mg iron) tablet 325 mg PO DAILY metoprolol succinate 25 mg tablet extended release 24 hr 12.5 mg PO BID 90 Days Qty: 90 3RF hydroxyzine HCl 50 mg tablet 50 mg PO BID PRN (Reason: anxiety) 90 Days Qty: 45 1RF Print Language: Nigerien
[2025-02-06 16:23] LABS: MANUAL DIFF FLAG NO
[2025-02-06 16:25] LABS: Hematocrit 35.0 % (37.0-47.0); Hemoglobin 11.5 g/dl (12.0-16.0); Imm Gran Abs Auto 0.01 X10*3/uL (0.00-0.03); Imm Gran Pct Auto 0.1 % (0.0-0.4); Lymphocytes Absolute Auto 3.1 X10*3/uL (1.2-4.9); Mean Corpuscular HGB Conc 32.9 g/dl (31.0-35.0); Mean Corpuscular Hemoglobin 26.9 pg (27.0-33.0); Mean Corpuscular Volume 81.8 fL (80.0-98.0); NRBC Abs Auto 0.000 X10*3/uL (0.0-0.012); NRBC Pct Auto 0.0 /100WBC (0.0-0.2); Platelet Count 265 X10*3/uL (160-400); Red Blood Count 4.28 X10*6/uL (4.20-5.50); White Blood Count 7.7 X10*3/uL (4.8-10.8)
[2025-02-06 16:45] LABS: Alanine Aminotransferase 20 U/L (0-31); Albumin Level 4.2 g/dL (3.5-5.0); Alkaline Phosphatase 66 U/L (39-117); Anion Gap 11 (12-20); Aspartate Amino Transferase 20 U/L (5-31); Blood Urea Nitrogen 8 mg/dL (9-16); Calcium 8.8 mg/dL (8.4-10.2); Carbon Dioxide 24 mmol/L (22-29); Chloride 112 mmol/L (96-108); Creatinine Clr Calc Pharmacy 109.7; Estimated Glomerular Filt Rate > 60; Magnesium 2.0 mg/dL (1.6-2.6); Potassium 3.8 mmol/L (3.3-5.1); Sodium 143 mmol/L (135-145); Total Protein 6.7 g/dL (6.5-8.0)
[2025-02-06 17:12] LABS: Resp Syncy Virus RNA Qual PCR NEGATIVE (Negative); SARS COV2 PCR INHOUSE NEGATIVE (Negative)
[2025-02-06 20:02] LABS: Appearance Urine Clear; Glucose Urine UA Negative (Negative); PH 7.0 (5.0-9.0); Specific Gravity - Urine 1.010 (1.005-1.025); UMIC TRIGGER UACC YES
[2025-02-06] MEDS: iohexoL 350 MG/ML 100 ML INFUS..BTL IV (20:09)
[2025-02-06 20:20] LABS: UACC Culture Trigger YES
--- OUTSIDE RECORDS SUMMARY | 2025-02-06 20:33 | XMS_ITS | Patient Health Record ---
Author Organization [facility] Address [address] [place] [address] Care Team Providers Care Nut Orchardist Name Role Phone Matt RODRIGUEZ, Sasha Primary Care Provider John Villeda Unavailable [phone] Allergies Allergen (clinical drug ingredient) Drug/Non Drug [...] HCl 200 MG Active Prenat Vit-Fe Gly [id number] Active Social History Tobacco Use: Social History [...] W/U Status Risk Notes Problem Plantar wart (66972165) Plantar wart (B07.0) Active confirmed Plan Of Treatment Pending Test Test Name Order Date [id number] Destruction, 1-14 08/14/2015 Insurance Providers Payer Name Payer Address Payer Phone Subscriber Number Group Number Insured Name Patient Relationship to Insured Coverage Start Date Coverage End Date [employer] ([employer]) [address] [place] [id number] [phone] [id number] Mehnaz Loaiza Self - patient is the insured Medical (General) History Medical History History ICD Code Anxiety Back,Hip,and Knee pain Depression Warts Chicken pox Surgical History Surgery Date(Month/Year) tonsillectomy and adenoidectomy 05/1994
[2025-02-06 21:25] VITALS: BP 126/78; PULSE 67; RESP 16; TEMP 36.7; O2SAT 99
[2025-02-06 21:26] VITALS: BP 126/78; PULSE 67; RESP 16; TEMP 36.7; O2SAT 99
== END 2025-02-06 21:41 | disposition home or self-care (01) ==
PROVIDERS: Physician Assistant Medical; Emergency Provider Emergency Medicine; PCP Family Medicine
DX: R10.21 Pelvic and perineal pain right side (principal); R11.2 Nausea with vomiting, unspecified; Z03.818 Encounter for observation for suspected exposure to other biological agents ruled out; Z79.899 Other long term (current) drug therapy
CPT/HCPCS: 36415; 74177; 80053; 81001; 81003; 83735; 84702; 85025; 87086; 87637; 96374; 99284; J1885; Q9967

== ENCOUNTER → 2025-02-06 19:30 | Outpatient (BNV) | payer OTHER, SELFPAY | PROVIDERS: Emergency Provider Emergency Medicine; PCP Family Medicine; Visit Provider Radiology Diagnostic Radiology | DX: R10.31 Right lower quadrant pain (principal); R16.0 Hepatomegaly, not elsewhere classified | CPT/HCPCS: 74177 ==